=== PATIENT | female | born 1935 | race Caucasian/White ===

== ENCOUNTER 2023-06-14 10:27 | Outpatient (CLI) | payer MEDICARE, OTHER, SELFPAY ==
--- NOTE | 2023-06-14 10:45 | CRLHL7_ITS ---
For Patients: As a result of the Century Cures Act, medical imaging exams and procedure reports are released immediately into your electronic medical record. You may view this report before your referring provider. If you have questions, please contact your health care provider. DIGITAL DIAGNOSTIC BILATERAL MAMMOGRAM USING TOMOSYNTHESIS AND COMPUTER-AIDED DETECTION LEFT BREAST ULTRASOUND CLINICAL HISTORY: LEFT breast lump. COMPARISON: None. TECHNIQUE: Digital BILATERAL mammogram in four projections. Tomosynthesis and CAD utilized. Real-time ultrasound imaging of LEFT breast with imaging documentation. BREAST COMPOSITION: There are areas of scattered fibroglandular density. FINDINGS: 3D CC/MLO BILATERAL mammogram images submitted. Irregular masses present within the lateral LEFT breast and there is an additional mass within the upper LEFT breast. Normal RIGHT breast mammogram images. Targeted LEFT breast ultrasound performed. At 12 o`clock 5 cm from the nipple, there is a macronodular heterogeneously hypoechoic mass measuring 10 x 18 x 14 millimeters. An additional masses present at 2 o`clock 5 cm from the nipple measuring 3.2 x 2.0 x 1.5 cm. The two masses are located approximately 3.3 cm apart. No axillary adenopathy. IMPRESSION: Two suspicious masses within the LEFT breast including 12 o`clock 5 cm from the nipple measuring 1.8 cm and 2 o`clock 5 cm from the nipple measuring 3.2 cm. RECOMMENDATIONS: Ultrasound-guided core needle biopsy of both masses. Results and recommendations discussed with the patient and her daughter. BI-RADS Category 5: Highly Suggestive of Malignancy A lay language report of this examination will be provided to the patient. Dictated by Hank Whalen MD @ 06/14/2023 11:52:55 AM /Dictated by: Hank Whalen MD @ 06/14/2023 11:52:00 AM (Electronically Signed)
--- NOTE | 2023-06-14 11:15 | CRLHL7_ITS ---
For Patients: As a result of the Cures Act, medical imaging exams and procedure reports are released immediately into your electronic medical record. You may view this report before your referring provider. If you have questions, please contact your health care provider. PLEASE SEE DIGITAL DIAGNOSTIC BILATERAL MAMMOGRAM PERFORMED SAME DAY CRL:dominguez mix/Dictated by: Hank Whalen MD @ 06/14/2023 11:52:00 AM (Electronically Signed)
== END 2023-06-14 10:28 | disposition home or self-care (01) ==
LOC: MAMMO 10:38
PROVIDERS: PCP Family Medicine; Visit Provider Pediatrics
DX: N63.21 Unspecified lump in the left breast, upper outer quadrant (principal); R22.2 Localized swelling, mass and lump, trunk
CPT/HCPCS: 76642; 77066; G0279

== ENCOUNTER 2023-06-25 10:03 | Outpatient (CLI) | payer MEDICARE, OTHER, SELFPAY ==
--- NOTE | 2023-06-25 10:15 | CRLHL7_ITS ---
For Patients: As a result of the Century Cures Act, medical imaging exams and procedure reports are released immediately into your electronic medical record. You may view this report before your referring provider. If you have questions, please contact your health care provider. ULTRASOUND-GUIDED BREAST BIOPSY OF TWO OR MORE SITES AND POST-BIOPSY DIGITAL MAMMOGRAM FOR BIOPSY MARKER PLACEMENT CLINICAL HISTORY: Suspicious masses LEFT breast. COMPARISON STUDIES: 06/14/2023. TECHNIQUE: Real-time ultrasound with image documentation was used for targeting the breast lesions. A core needle biopsy system was used to obtain core tissue samples with an 18-gauge needle. Post-biopsy CC and ML digital mammograms were obtained to document position of the biopsy marker. CONSENT and TIME OUT: The procedure, risks, and alternatives were explained to the patient and a consent was signed. [place] Protocol was followed including pre-procedure verification that relevant information/documentation was available, reviewed and properly matched to the patient; consent accurate and complete; and equipment and supplies available. Time Out was conducted just prior to starting procedure to verify the four required elements: patient identity, correct side/site marked (if applicable), procedure, relevant images/results properly labeled and displayed (if applicable). PROCEDURE: All biopsies were performed in a similar manner. The patient was positioned supine on the ultrasound table. The breast was prepped with ChloraPrep. 8 cc 1 percent lidocaine used for local anesthesia. Core samples were obtained. A sterile metal biopsy clip was placed percutaneously to dedrick the lesion position within the breast. The specimens were placed in 10% formalin and sent to the Pathology Department. Pressure was held on the biopsy site until all bleeding subsided. The skin incision was closed with Steri-Strips. An ice pack was positioned over the biopsy site. The patient tolerated the procedure well. Post-biopsy instructions were reviewed with the patient, and a written copy was given to her. SITE A: LATERALITY: LEFT breast. LESION: Heterogeneously hypoechoic solid mass measuring 1.4 x 1.0 x 1.8 cm at 12 o`clock 5 cm from the nipple. SUSPICION: High. NUMBER OF SAMPLES: 6. BIOPSY CLIP SHAPE: Oval. PROXIMITY OF CLIP TO TARGET: Within the lesion. SITE B: LATERALITY: LEFT breast. LESION: Ill-defined hypoechoic solid mass with irregular margins measuring 1.5 x 2.0 x 3.3 cm at 2 o`clock 5 cm from the nipple. SUSPICION: High. NUMBER OF SAMPLES: 6. BIOPSY CLIP SHAPE: Oval. PROXIMITY OF CLIP TO TARGET: Within the lesion. DISTANCE BETWEEN: Sites A and B: 3.3 cm. IMPRESSION: Ultrasound-guided breast biopsy of two or more sites. When the pathology report is available, an addendum to this report will be made. ACR not applicable Dictated by Hank Whalen MD @ 06/25/2023 11:25:09 AM jj/Dictated by: Hank Whalen MD @ 06/25/2023 11:25:00 AM (Electronically Signed)
--- NOTE | 2023-06-25 11:00 | CRLHL7_ITS ---
For Patients: As a result of the Century Cures Act, medical imaging exams and procedure reports are released immediately into your electronic medical record. You may view this report before your referring provider. If you have questions, please contact your health care provider. PLEASE SEE ULTRASOUND-GUIDED LEFT BREAST BIOPSY TWO-SITES PERFORMED SAME DAY CRL:dominguez mix/Dictated by: Hank Whalen MD @ 06/25/2023 12:30:00 PM (Electronically Signed)
== END 2023-06-25 10:04 | disposition home or self-care (01) ==
LOC: US 10:04
PROVIDERS: PCP Family Medicine; Visit Provider Pediatrics
DX: N63.21 Unspecified lump in the left breast, upper outer quadrant (principal); C50.912 Malignant neoplasm of unspecified site of left female breast; R92.8 Other abnormal and inconclusive findings on diagnostic imaging of breast
CPT/HCPCS: 19083; 77065; 88305; 88342; 88360; 88361; 88377; A4648; A4649

== ENCOUNTER 2023-07-09 15:47 | Outpatient (CLI) | payer MEDICARE, OTHER, SELFPAY ==
--- OUTSIDE RECORDS SUMMARY | 2023-07-09 15:50 | XMS_ITS | Encounter Summary ---
Author Name Unknown Organization [facility] Address [address] [place] [id number] Care Team Providers Care Grinder Operator External Tool Name Role Phone Christine Trejo M.D. Primary Care Provider [phone] Reason for Visit * Reason Onset Date Comments Rib Injury 06/03/2023 Encounter Details Date Type Department Care Team (Late st Contact Info) Description 06/03/2023 Nurse Triage Department of Family Medicine, [facility], in [address] [phone] Liz Archibald, R.N. [address] [place] [phone] Rib Injury Social History Tobacco Use Types Packs/Day Years Used Date Smoking Tobacco: Former Cigarettes 0 1955 - 05/20/2000 Smokeless Tobacco: Never Alcohol Use Standard Drinks/Week Comments Yes 0 (1 standard drink = 0.6 oz pur e alcohol) occasional PHQ-2 Answer Date Recorded PHQ-2 Score 0 06/04/2023 Nutrition Answer Date Recorded Nutrition: EVOO Fat Source Unknown 07/21 Nutrition: Servings of Fruits/Vegetables per Day Not on file 07/21/2020 Dental Answer Date Recorded Dental: Regular Dentist Unknown 07/22/19 21 Sex and Gender Information Value Date Recorded Sex Assigned at Not on file Gender Identity Not on file Sexual Orientation Not on file documented as of this encounter Miscellaneous Notes * Telephone Encounter - Liz Archibald, R.N. - 06/03/2023 10:56 AM CASHIER GREETER Chief Complaint / Reason for Call Patient is a 87 y.o. female calling regarding Rib Injury. Assessment Concern: Mild-moderate intermittent pain and possible swelling on side of left breast and under left armpit. Patient fell 9 days ago onto her left side.. She still has a couple of bruises on left upper arm, but no bruising in area of concern. Since her fall she has had intermittent discomfort in her left chest wall/breast. It feels firm in the area. Hurts with certain movements/positions and whentaking a deep breath or coughing. Describes it as a heavy feeling. Is worried that the pain has gone away yet. Present for: 9 days Home cares tried: Tylenol initially. Calling to request: Appt The recommended disposition is See a health care provider within 3 days. Caller was scheduled for an acute appointment via [facility] [employer] [facility]. Reason for Disposition [1] Chest wall swelling or pain AND [2] present > 7 days Protocols used: Chest [id number] Care Advice Patient/Caregiver understands and will follow care advice?: Yes, able to teach back SEE PCP WITHIN 3 DAYS: * You need to be seen within 2 or 3 days. CALL BACK IF: * You become worse IER GREETER documented in this encounter Plan of Treatment Not on file documented as of this encounter Visit Diagnoses Not on filedocumented in this encounter Care Teams Grinder Operator External Tool Relationship Specialty Start Date End Date Christine Trejo M.D. [id number] [phone] PCP - General 04/04/22 documented as of this encounter
--- OUTSIDE RECORDS SUMMARY | 2023-07-09 15:50 | XMS_ITS ---
Author Name Unknown Organization [facility] Address [address] [place] [address] Care Team Providers Care Research Technician Name Role Phone Unavailable Unavailable Unavailable Surgery Details Not on file Complications Check Surgery Details section. Procedure Estimated Blood Loss Check Surgery Details section. Procedure Findings Check Surgery Details section. Procedure Specimens Taken Check Surgery Details section.
--- OUTSIDE RECORDS SUMMARY | 2023-07-09 15:50 | XMS_ITS | Clinical Summary ---
Author Name Unknown Organization [facility] Address [address] [place] [address] Care Team Providers Care Steward/Stewardess Name Role Phone Christine Trejo M.D. Primary Care Provider +1- [phone] Source Comments Patient records contain information from all sites at [facility]. For routine questions regarding patient records, call [phone] during business hours, M-F 8:00 AM - 5:00 PM Central Time. Record requests for emergency care only can be directed to [phone] at any time.[facility] Allergies No known active allergies Medications Medication Sig Dispensed Refills Start Date End Date Status aspirin [address] tablet Take 1 tablet by mouth daily. 0 03/21/2011 Active omega 1-bvo-lfr-fish oil 300-1,000 mg capsule Take 1 capsule by mouth daily. 0 11/28/2011 Active amLODIPine (NORVASC) 5 mg tabletIndications:Hyp ertension Essential Primary Take 1 tablet (5 mg total) by mouth daily. 90 tablet 3 04/30/2023 Active losartan-hydroCHLOROt hiazide (Hyzaar) 100-12.5 mg per tabletIndications:Hyp ertension Essential Primary Take 1 tablet by mouth daily. 90 tablet 3 04/30/2023 Active metoprolol succinate (TOPROL-XL) 100 mg 24 hr tabletIndications:Hyp ertension Essential Primary,Supraventricu lar Tachycardia, Unspecified (HCC) Take 1 tablet (100 mg total) by mouth daily. 90 tablet 3 04/30/2023 Active sertraline (Zoloft) 50 mg tabletIndications:Anx iety Take 1 tablet (50 mg total) by mouth daily. 90 tablet 3 04/30/2023 Active simvastatin (ZOCOR) 10 mg tabletIndications:Hyp erlipidemia Take 1 tablet (10 mg total) by mouth at bedtime. 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 Lump In The Left Breast Upper Outer Quadrant (Primary Dx); Abnormal Mammogram 06/14/2023 Clinical Communication Department of [facility], [facility], in [address] [phone] Christine Trejo M.D. 06/04/2023 11:30 AM STEAM TRAIN DRIVER Office Visit [facility] in [place] [address] [address] [place], [place] [address] Cande Gaitan M.D. Pain Chest Wall (Primary Dx); Mass Chest Wall; History Of Falling; Lump In The Left Breast Upper Outer Quadrant Discharge Disposition: Home or Self Care 06/04/2023 Clinical Communication Department of [facility], [facility], in [address] [place] [address] Christine Trejo M.D. Order Request 06/03/2023 Nurse Triage Department of [facility], [facility], in [address] [place] [address] Liz Archibald R.N. Rib Injury 04/30/2023 11:30 AM STEAM TRAIN DRIVER Office Visit Department of Family Medicine, [facility], in [address] [phone] Christine Trejo M.D. Hyperlipidemia (Primary Dx); Hypertension Essential Primary; Supraventricular Tachycardia, Unspecified (HCC); Anxiety; Need Vaccine Immunization; Screening Examination Diabetes Mellitus Discharge Disposition: Home or Self Care from Last 3 Months Immunizations Name Administration Dates Next Due HZV (ZOSTAVAX) 04/30/2023(Deferred: Patient dec ision) Influenza high dose QV(65 ye ars or older) (PF) 04/30/2023 Influenza, Quadrivalent, Adj uvanted, Preservative Free 04/09/2022,02/13/2021 Influenza, Unspecified 02/02/2015,02/09/2014,06/2010 PCV13 02/02/2015 PPSV23(Discontinued) 03/21/2011 RSV: respiratory syncytial v irus (ABRYSVO) bivalent vaccine 04/30/2023(Deferred: Patient decision) RSV: respiratory syncytial v irus (AREXVY) recombinant vaccine 04/30/2023 Rabies, intramuscular, historical 2012,12/11/2012,12/03/2012,2012,11/26/2012 SARS-COV-2 (COVID-19) - MODE RNA (12 YEARS AND OLDER) [id number] 04/30/2023 SARS-COV-2 (COVID-19) - PFIZ ER (Discontinued)(12 years or older) 08/01/2020,07/07/2020 SARS-COV-2 (COVID-19) - PFIZ ER BIVALENT TS(Discontinued)(12 YEARS OR OLDER) 04/09/2022 SARS-COV-2 (COVID-19) - PFIZ ER TS(Discontinued)(12 years or older) 09/13/2021 Tdap 04/30/2023(Deferred: Patient dec ision) influenza high dose (65 year s or older) (PF) 02/02/2015 influenza vaccine quad (FLUZONE/FLUARIX) (6 months and older)(PF) 02/09/2020 Family History Medical History Relation Name Comments Cataracts Brother Prostate cancer Brother Cataracts Mother Glaucoma Mother Cataracts Sister Hyperlipidemia Sister Anesthesia problems Neg Hx Macular degeneration Neg Hx Retinal degeneration Neg Hx Retinal detachment Neg Hx Relation Name Status Comments Brother Mother Sister Social History Tobacco Use Types Packs/Day Years Used Date Smoking Tobacco: Former Cigarettes 0 1955 - 05/20/2000 Smokeless Tobacco: Never Tobacco Cessation:Counseling Given: Not Answered Alcohol Use Standard Drinks/Week Comments Yes 0 (1 standard drink = 0.6 oz pur e alcohol) occasional PHQ-2 Answer Date Recorded PHQ-2 Score 0 06/04/2023 Nutrition Answer Date Recorded Nutrition: EVOO Fat Source Unknown 07/21 Nutrition: Servings of Fruits/Vegetables per Day Not on file 07/21/2020 Dental Answer Date Recorded Dental: Regular Dentist Unknown 07/22/19 Sex and Gender Information Value Date Recorded Sex Assigned at Not on file Gender Identity Not on file Sexual Orientation Not on file Last Filed Vital Signs Vital Sign Reading Time Taken Comments Blood Pressure 160/82 06/04/2023 12:06 PM STEAM TRAIN DRIVER Pulse 73 06/04/2023 12:06 PM STEAM TRAIN DRIVER Temperature 36 ??C (96.8 ??F) 04/30/2023 11: 27 AM STEAM TRAIN DRIVER Respiratory Rate 20 04/30/2023 11:2 7 AM STEAM TRAIN DRIVER Oxygen Saturation 96% 04/30/2023 11: 27 AM STEAM TRAIN DRIVER Inhaled Oxygen Concentration - - Weight 66.2 kg (145 lb 15.1 oz) 024 11:18 AM STEAM TRAIN DRIVER Height 165.1 cm (5' 5) 04/30/2023 11:2 7 AM STEAM TRAIN DRIVER Body Mass Index 24.29 04/30/2023 11:27 AM STEAM TRAIN DRIVER Plan of Treatment Health Maintenance Due Date Last Done Comments DTaP,Tdap,and Td Vaccines (1 - Tdap) 10[birth year]14/1954 Zoster Vaccines (1 of 2) 10/14/1985 Visit: Medicare Annual Wellness 05/08/2023 Creatinine Level (Kidney Fun ction Test) 04/30/2024 04/30/2023, 05/07/2022, 05/05/2021, Additional history exists Potassium Level 04/30/2024 04/30/2023, 04/19, 05/04/2020, Additional history exists Sodium Level 04/30/2024 04/30/2023, 04/19, 05/05/2021, Additional history exists Visit: Chronic Disease, age 18+ 04/30/2024 Pneumococcal vaccine (65+ years) Completed 02/03/20 15, 03/21/2011 COVID-19 Vaccine Completed 04/30/2023, , 09/13/2021, Additional history exists Influenza Vaccine Completed 04/30/2023, , 02/13/2021, Additional history exists RSV vaccine - (32-3 6 weeks) or 60+ years Completed 04/30/2023 Depression Screening (Annual PHQ-2) Completed 06/04/2023, 06/04/2023 Fall Risk Screen (Annual) Completed 06/04/2023 Medical Devices Implanted Type Area Residential Coordinator Device Identifier Shelf Expiration Date Model / Serial / Lot +[id number] Implanted:Qt y: 1 on 02/02/2019 by Praveen Chandra M.D. at [facility] Ocular Lens Right: Eye [employer] [id number] / [id number] / Lens Tcn [id number] Bicnvx +25.5d - [id number] - [id number] Implanted:Qt y: 1 on 02/16/2019 by Praveen Chandra M.D. at [facility] Ocular Lens Left: Eye [employer] (Previously JESSE) [id number] 01/30/2022 [id number] / [id number] / Procedures Procedure Name Priority Date/Time Associated Diagnosis Comments OUTSIDE US BREAST Routine 06/14/2023 11: 15 AM STEAM TRAIN DRIVER OUTSIDE MG MAMMOGRAM Routine 06/14/2023 10:55 AM STEAM TRAIN DRIVER LIPID PANEL, S Routine 04/30/2023 12:36 PM STEAM TRAIN DRIVER Hyperlipidemia GLUCOSE, FASTING, S/P Routine 04/30/2023 12:36 PM STEAM TRAIN DRIVER Screening Examination Diabetes Mellitus BASIC METABOLIC PANEL, S/P Routine 04/30/2023 12:36 PM STEAM TRAIN DRIVER Hypertension Essential Primary from Last 3 Months Results * US breast LT limited-Outside US Breast (06/14/2023 11:15 AM STEAM TRAIN DRIVER) 06/14/2023 11:1 1 AM STEAM TRAIN DRIVER Narrative IIMS - 06/14/2023 1:57 PM STEAM TRAIN DRIVER This order has been created and auto-finalized to support the import of outside images. If available, original interpretation can be found on the Media Tab in Chart Review, in Document Viewer, or as an image in QREADS. If a re-interpretation or overread is required please follow defined workflow. ?? Provider Not In System IMG BI PROCEDURES Performing Organization Address [facility] de Phone Number IIMS NA * MM diagnostic mammo BI-Outside Mammogram (06/14/2023 10:55 AM STEAM TRAIN DRIVER) 06/14/2023 10:5 4 AM STEAM TRAIN DRIVER Narrative IIMS - 06/14/2023 2:00 PM STEAM TRAIN DRIVER This order has been created and auto-finalized to support the import of outside images. If available, original interpretation can be found on the Media Tab in Chart Review, in Document Viewer, or as an image in QREADS. If a re-interpretation or overread is required please follow defined workflow. ?? Provider Not In System IMG BI PROCEDURES Performing Organization Address [facility] de Phone Number [facility]IMS NA * (ABNORMAL) Lipid Panel (04/30/2023 12:36 PM STEAM TRAIN DRIVER) Triglycerides 104 mg/dL 04/30/2023 12:56 PM STEAM TRAIN DRIVER CNFL Comment: ----REFERENCE VALUE---- Normal: <150 mg/dL Borderline High: 150-199 mg/dL High: 200-499 mg/dL Very High: > or =500 mg/dL Cholesterol, Total 165 mg/dL 2022 12:56 PM STEAM TRAIN DRIVER CNFL Comment: ----REFERENCE VALUE---- Desirable: < 200 mg/dL Borderline High: 200 - 239 mg/dL High: > or = 240 mg/dL Cholesterol, LDL, Calculated 100 mg/dL 04/30/2023 12:56 PM STEAM TRAIN DRIVER CNFL Comment: ----REFERENCE VALUE---- Desirable: <100 mg/dL Above Desirable: 100-129 mg/dL Borderline High: 130-159 mg/dL High: 160-189 mg/dL Very High: >=190 mg/dL ----ADDITIONAL INFORMATION---- LDL cholesterol calculated using the Alarcon/NIH equation. Cholesterol, HDL 46(L) >=50 mg/dL 04/30/20 12:56 PM STEAM TRAIN DRIVER CNFL Cholesterol, Non-HDL, Calculated 119 mg/dL 04/30/2023 12:56 PM STEAM TRAIN DRIVER CNFL Comment: ----REFERENCE VALUE---- Desirable: <130 mg/dL Above Desirable: 130-159 mg/dL Borderline High: 160-189 mg/dL High: 190-219 mg/dL Very High: > or =220 mg/dL Fasting (8 HR or more) Yes 04/30/2023 12:37 PM STEAM TRAIN DRIVER CNFL Blood (Blood, Venous) 04/30/2023 12:36 PM STEAM TRAIN DRIVER 04/30/2023 12:37 PM STEAM TRAIN DRIVER Christine Trejo M.D. LAB BLOOD ADD-ON [facility] [address] [place] [address], [facility] CNFL [facility] [place] [address] * Glucose, Fasting (04/30/2023 12:36 PM STEAM TRAIN DRIVER) Glucose, P 95 70 - 100 mg/dL 04/30/2023 12:54 PM STEAM TRAIN DRIVER CNFL Last Intake 20 hr 04/30/2023 12:37 PM STEAM TRAIN DRIVER CNFL Blood (Blood, Venous) 04/30/2023 12:36 PM STEAM TRAIN DRIVER 04/30/2023 12:37 PM STEAM TRAIN DRIVER Christine Trejo M.D. LAB BLOOD NON ADD- ON [facility] [address] [place] [address], [facility] CNFL [address] [address] * Basic Metabolic Panel (04/30/2023 12:36 PM STEAM TRAIN DRIVER) Potassium, P 4.2 3.6 - 5.2 mmol/L 04/30/2023 12:56 PM STEAM TRAIN DRIVER CNFL Sodium, P 138 135 - 145 mmol/L 04/30/2023 12:56 PM STEAM TRAIN DRIVER CNFL Chloride, P 100 98 - 107 mmol/L 04/30/2023 12:56 PM STEAM TRAIN DRIVER CNFL Bicarbonate, P 27 22 - 29 mmol/L 04/30/2023 12:56 PM STEAM TRAIN DRIVER CNFL Anion Gap, P 11 7 - 15 04/30/2023 12:56 PM STEAM TRAIN DRIVER CNFL BUN (Blood Urea Nitrogen), P 12 6 - 21 mg/dL 04/30/2023 12:56 PM STEAM TRAIN DRIVER CNFL Creatinine 0.81 0.59 - 1.04 mg/dL 04/30/2023 12:56 PM STEAM TRAIN DRIVER CNFL Estimated GFR (eGFR) 70 >=60 mL/min/BSA 04/30/2023 12:56 PM STEAM TRAIN DRIVER CNFL Comment: Estimated GFR calculated using the 2020 CKD_EPI creatinine equation. Calcium, Total, P 9.4 8.8 - 10.2 mg/dL 04/30/2023 12:56 PM STEAM TRAIN DRIVER CNFL Glucose, P CANCELED mg/dL 04/30/2023 12:37 PM STEAM TRAIN DRIVER CNFL Comment: Duplicate test request. Result canceled by the ancillary. Blood (Blood, Venous) 04/30/2023 12:36 PM STEAM TRAIN DRIVER 04/30/2023 12:37 PM STEAM TRAIN DRIVER Christine Trejo M.D. LAB BLOOD ADD-ON [address] [address], [place] CNFL [facility] in [address] [address] from Last 3 Months Care Teams Steward/Stewardess Relationship Specialty Start Date End Date Christine Trejo M.D. [address] [place] [phone] PCP - General 04/04/22
--- OUTSIDE RECORDS SUMMARY | 2023-07-09 15:50 | XMS_ITS | Encounter Summary ---
Author Name Unknown Organization [facility] Address [address] [place] [address] Care Team Providers Care Inspector Chief Name Role Phone Christine Trejo M.D. Primary Care Provider +1- [phone] Reason for Visit * Reason Comments Medication Review * Outpatient (Routine) - Closed Specialty Diagnoses / Procedures Referred By Lorenzo osborne Referred To Contact Family Medicine Christine Trejo M.D. [address] [place] [phone] [facility] Referral ID Status Reason Start Date Expiration Date Visits Re quested Visits Authorized [id number] Closed 02/19/2023 02/18/2026 1 1 Encounter Details Date Type Department Care Team (Latest Contact Info) Description 04/30/2023 11:30 AM SENIOR FRONT END DEVELOPER Office Visit Department of Family Medicine, [facility], in [address] [phone] Christine Trejo M.D. [address] [place] [phone] Hyperlipidemia (Primary Dx); Hypertension Essential Primary; Supraventricular Tachycardia, Unspecified (HCC); Anxiety; Need Vaccine Immunization; Screening Examination Diabetes Mellitus Discharge Disposition: Home or Self Care Social History Tobacco Use Types Packs/Day Years Used Date Smoking Tobacco: Former Cigarettes 0 1955 - 05/20/2000 Smokeless Tobacco: Never Tobacco Cessation:Counseling Given: Not Answered Alcohol Use Standard Drinks/Week Comments Yes 0 (1 standard drink = 0.6 oz pur e alcohol) occasional PHQ-2 Answer Date Recorded PHQ-2 Score 1 04/30/2023 Nutrition Answer Date Recorded Nutrition: EVOO Fat Source Unknown 07/21 Nutrition: Servings of Fruits/Vegetables per Day Not on file 07/21/2020 Dental Answer Date Recorded Dental: Regular Dentist Unknown 07/22/19 21 Sex and Gender Information Value Date Recorded Sex Assigned at Not on file Gender Identity Not on file Sexual Orientation Not on file documented as of this encounter Last Filed Vital Signs Vital Sign Reading Time Taken Comments Blood Pressure 151/66 04/30/2023 11:42 AM SENIOR FRONT END DEVELOPER Pulse 74 04/30/2023 11:27 AM SENIOR FRONT END DEVELOPER Temperature 36 ??C (96.8 ??F) 04/30/2023 11:27 AM SENIOR FRONT END DEVELOPER Respiratory Rate 20 04/30/2023 11:27 AM SENIOR FRONT END DEVELOPER Oxygen Saturation 96% 04/30/2023 11:27 AM SENIOR FRONT END DEVELOPER Inhaled Oxygen Concentration - - Weight 66.4 kg (146 lb 6.2 oz) 04/30/2023 11:27 AM SENIOR FRONT END DEVELOPER Height 165.1 cm (5' 5) 04/30/2023 11:27 AM SENIOR FRONT END DEVELOPER Body Mass Index 24.36 04/30/2023 11:27 AM SENIOR FRONT END DEVELOPER documented in this encounter Patient Instructions * Patient Instructions* Christine Trejo M.D. - 04/30/2023 11:30 AM SENIOR FRONT END DEVELOPER OR FRONT END DEVELOPER documented in this encounter Progress Notes * Christine Trejo M.D. - 04/30/2023 11:30 AM CST SUBJECTIVE REASON FOR VISIT Medication Review HISTORY OF PRESENT ILLNESS Sarah Rodriguez is a 87 y.o. female patient who presents to the clinic today for above concern. Not currently monitoring her blood pressure at home. No episodes of tachycardia while on metoprolol. OBJECTIVE VITAL SIGNS Vitals reviewed as below: BP 151/66 (BP Location: Left arm, Patient Position: Sitting, Cuff Size: Regular) Pulse 74 Temp 36 ??C Resp 20 Ht 165.1 cm Wt 66.4 kg SpO2 96% BMI 24.36 kg/m?? PHYSICAL EXAMINATION Vitals reviewed. Constitutional General: She is not in acute distress. Appearance: Normal appearance. HENT Right Ear: Tympanic membrane normal. Left Ear: Tympanic membrane normal. Mouth/Throat: Mouth: Mucous membranes are moist. Pharynx: No posterior oropharyngeal erythema. Eyes Conjunctiva/sclera: Conjunctivae normal. Neck Thyroid: No thyromegaly. Cardiovascular Rate and Rhythm: Normal rate and regular rhythm. Pulmonary Effort: Pulmonary effort is normal. Breath sounds: Normal breath sounds. No wheezing, rhonchi or rales. Abdominal General: Abdomen is flat. Bowel sounds are normal. There is no distension. Palpations: Abdomen is soft. There is no mass. Tenderness: There is no abdominal tenderness. There is no guarding. Musculoskeletal Right lower leg: No edema. Left lower leg: No edema. Lymphadenopathy Cervical: No cervical adenopathy. Skin General: Skin is warm and dry. Neurological Mental Status: She is alert. Mental status is at baseline. Psychiatric Mood and Affect: Mood normal. Behavior: Behavior normal. ASSESSMENT / PLAN #1 Hyperlipidemia Repeat lipid panel ordered today. Previously discussed de-prescribing of her simvastatin. She wishes to continue and refills are provided. #2 Hypertension Essential Primary Blood pressure is elevated in the clinic today, though suspect component of white coat hypertension. - Medications: Continue losartan-hydrochlorothiazide 100-12.5 mg daily, and amlodipine, 5 mg daily. - Patient declines nurse visit and prefers to monitor BP at home. she will notify me via phone callor portal if readings are persistently >140/90. - BMP ordered today. - If BP continues to be elevated, recommend increase in her dose of hydrochlorothiazide to 25 mg daily. Anti-Hypertensives amLODIPine (NORVASC) 5 mg tablet Take 1 tablet (5 mg total) by mouth daily. losartan-hydroCHLOROthiazide (Hyzaar) 100-12.5 mg per tablet Take 1 tablet by mouth daily. metoprolol succinate (TOPROL-XL) 100 mg 24 hr tablet Take 1 tablet (100 mg total) by mouth daily. Lab Results Component Value Date CREATININE 0.81 04/30/2023 #3 Supraventricular Tachycardia, Unspecified (HCC) Well controlled with metoprolol. Refills provided. #4 Anxiety Symptoms are adequately controlled with sertraline. Continue current dose. #5 Need Vaccine Immunization Risks and benefits of vaccination are discussed. Immunizations given today include: COVID-19 , Influenza, and RSV. #6 Screening Examination Diabetes Mellitus Fasting glucose ordered. Christine Trejo M.D. OR FRONT END DEVELOPER documented in this encounter Plan of Treatment Not on file documented as of this encounter Procedures Procedure Name Priority Date/Time Associated Diagnosis Comments LIPID PANEL, S Routine 04/30/2023 12:36 PM SENIOR FRONT END DEVELOPER Hyperlipidemia GLUCOSE, FASTING, S/P Routine 04/30/2023 12:36 PM SENIOR FRONT END DEVELOPER Screening Examination Diabetes Mellitus BASIC METABOLIC PANEL, S/P Routine 04/30/2023 12:36 PM SENIOR FRONT END DEVELOPER Hypertension Essential Primary documented in this encounter Results * Basic Metabolic Panel (04/30/2023 12:36 PM SENIOR FRONT END DEVELOPER) Potassium, P 4.2 3.6 - 5.2 mmol/L 04/30/2023 12:56 PM SENIOR FRONT END DEVELOPER CNFL Sodium, P 138 135 - 145 mmol/L 04/30/2023 12:56 PM SENIOR FRONT END DEVELOPER CNFL Chloride, P 100 98 - 107 mmol/L 04/30/2023 12:56 PM SENIOR FRONT END DEVELOPER CNFL Bicarbonate, P 27 22 - 29 mmol/L 04/30/2023 12:56 PM SENIOR FRONT END DEVELOPER CNFL Anion Gap, P 11 7 - 15 04/30/2023 12:56 PM SENIOR FRONT END DEVELOPER CNFL BUN (Blood Urea Nitrogen), P 12 6 - 21 mg/dL 04/30/2023 12:56 PM SENIOR FRONT END DEVELOPER CNFL Creatinine 0.81 0.59 - 1.04 mg/dL 04/30/2023 12:56 PM SENIOR FRONT END DEVELOPER CNFL Estimated GFR (eGFR) 70 >=60 mL/min/BSA 04/30/2023 12:56 PM SENIOR FRONT END DEVELOPER CNFL Comment: Estimated GFR calculated using the 2020 CKD_EPI creatinine equation. Calcium, Total, P 9.4 8.8 - 10.2 mg/dL 04/30/2023 12:56 PM SENIOR FRONT END DEVELOPER CNFL Glucose, P CANCELED mg/dL 04/30/2023 12:37 PM SENIOR FRONT END DEVELOPER CNFL Comment: Duplicate test request. Result canceled by the ancillary. Blood (Blood, Venous) 04/30/2023 12:36 PM SENIOR FRONT END DEVELOPER 04/30/2023 12:37 PM SENIOR FRONT END DEVELOPER Christine Trejo M.D. LAB BLOOD ADD-ON Performing Organization Address City/[facility]/ZIP Co de Phone Number [facility] [address] [place] [id number], [facility] [address] [address] * Glucose, Fasting (04/30/2023 12:36 PM SENIOR FRONT END DEVELOPER) Glucose, P 95 70 - 100 mg/dL 04/30/2023 12:54 PM SENIOR FRONT END DEVELOPER CNFL Last Intake 20 hr 04/30/2023 12:37 PM SENIOR FRONT END DEVELOPER CNFL Blood (Blood, Venous) 04/30/2023 12:36 PM SENIOR FRONT END DEVELOPER 04/30/2023 12:37 PM SENIOR FRONT END DEVELOPER Christine Trejo M.D. LAB BLOOD NON ADD- ON Performing Organization Address [facility]/ZIP Co de Phone Number [facility] [address] [place] [phone], [facility] [address] [address] * (ABNORMAL) Lipid Panel (04/30/2023 12:36 PM SENIOR FRONT END DEVELOPER) Triglycerides 104 mg/dL 04/30/2023 12:56 PM SENIOR FRONT END DEVELOPER CNFL Comment: ----REFERENCE VALUE---- Normal: <150 mg/dL Borderline High: 150-199 mg/dL High: 200-499 mg/dL Very High: > or =500 mg/dL Cholesterol, Total 165 mg/dL 2022 12:56 PM SENIOR FRONT END DEVELOPER CNFL Comment: ----REFERENCE VALUE---- Desirable: < 200 mg/dL Borderline High: 200 - 239 mg/dL High: > or = 240 mg/dL Cholesterol, LDL, Calculated 100 mg/dL 04/30/2023 12:56 PM SENIOR FRONT END DEVELOPER CNFL Comment: ----REFERENCE VALUE---- Desirable: <100 mg/dL Above Desirable: 100-129 mg/dL Borderline High: 130-159 mg/dL High: 160-189 mg/dL Very High: >=190 mg/dL ----ADDITIONAL INFORMATION---- LDL cholesterol calculated using the Alarcon/NIH equation. Cholesterol, HDL 46(L) >=50 mg/dL 04/30/20 12:56 PM SENIOR FRONT END DEVELOPER CNFL Cholesterol, Non-HDL, Calculated 119 mg/dL 04/30/2023 12:56 PM SENIOR FRONT END DEVELOPER CNFL Comment: ----REFERENCE VALUE---- Desirable: <130 mg/dL Above Desirable: 130-159 mg/dL Borderline High: 160-189 mg/dL High: 190-219 mg/dL Very High: > or =220 mg/dL Fasting (8 HR or more) Yes 04/30/2023 12:37 PM SENIOR FRONT END DEVELOPER CNFL Blood (Blood, Venous) 04/30/2023 12:36 PM SENIOR FRONT END DEVELOPER 04/30/2023 12:37 PM SENIOR FRONT END DEVELOPER Christine Trejo M.D. LAB BLOOD ADD-ON [facility] [address] [place] [phone], [facility] in [address] [address] documented in this encounter Visit Diagnoses Diagnosis Hyperlipidemia- Primary Hypertension Essential Primary Supraventricular Tachycardia, Unspecified (HCC) Anxiety Need Vaccine Immunization Screening Examination Diabetes Mellitus documented in this encounter Care Teams Inspector Chief Relationship Specialty Start Date End Date Christine Trejo M.D. [address] [place] [phone] PCP - General 04/04/22 documented as of this encounter
--- OUTSIDE RECORDS SUMMARY | 2023-07-09 15:50 | XMS_ITS | Encounter Summary ---
Author Name Unknown Organization [facility] Address [address] [place] [address] Care Team Providers Care Pulp Mill Operator Name Role Phone Christine Trejo M.D. Primary Care Provider +1- [phone] Reason for Referral * Outpatient (Routine) - Authorized Specialty Diagnoses / Procedures Referred By Lorenzo osborne Referred To Contact Christine Trejo M.D. [address] [place] [phone] [facility] Referral ID Status Reason Start Date Expiration Date V isits Requested Visits Authorized [id number] Authorized 02/19/2023 02/18/2026 1 1 Scheduling Instructions Nurse AWV Do not schedule prior to due date to ensure insurance coverage Visit: Medicare Annual Wellness due on 05/08/2023. * Outpatient (Routine) - Closed Specialty Diagnoses / Procedures Referred By Lorenzo osborne Referred To Contact Family Medicine Christine Trejo M.D. [address] [place] [phone] [facility] Region Referral ID Status Reason Start Date Expiration Date Visits Re quested Visits Authorized [id number] Closed 02/19/2023 02/18/2026 1 1 Scheduling Instructions Medicare annual provider visit/HCC gaps Do not schedule prior to due date to ensure insurance coverage Visit: Medicare Annual Wellness due on 05/08/2023. Encounter Details Date Type Department Care Team (Late st Contact Info) Description 02/19/2023 Orders Only [facility] PCP [facility] Christine Trejo M.D. [address] [phone] Monitoring For Therapeutic Drug Therapy Social History Tobacco Use Types Packs/Day Years Used Date Smoking Tobacco: Former Smokeless Tobacco: Never PHQ-2 Answer Date Recorded PHQ-2 Score 1 05/07/2022 Nutrition Answer Date Recorded Nutrition: EVOO Fat Source Unknown 07/21 Nutrition: Servings of Fruits/Vegetables per Day Not on file 07/21/2020 Dental Answer Date Recorded Dental: Regular Dentist Unknown 07/22/19 21 Sex and Gender Information Value Date Recorded Sex Assigned at Not on file Gender Identity Not on file Sexual Orientation Not on file documented as of this encounter Plan of Treatment Scheduled Referrals Name Type Priority Associated Diagnoses Orde r Schedule Family Medicine office visit (clinic) Outpatient Referral Routine Expected: 03/19/2023, Expires: 08/18/2023 Primary Care nurse visit (clinic) - [facility]; Medicare Annual Wellness Outpatient Referral Routine Expected: 03/19/2023, Expires: 08/18/2023 documented as of this encounter Visit Diagnoses Diagnosis Monitoring For Therapeutic Drug Therapy documented in this encounter Care Teams Pulp Mill Operator Relationship Specialty Start Date End Date Christine Trejo M.D. [address] [phone] PCP - General 04/04/22 documented as of this encounter
--- OUTSIDE RECORDS SUMMARY | 2023-07-09 15:50 | XMS_ITS | Referral Summary ---
Author Name Unknown Organization [facility] Address [address] [place] [address] Care Team Providers Care Maintenance Millwright Name Role Phone Christine Trejo M.D. Primary Care Provider +1- [phone] Source Comments Patient records contain information from all sites at [facility]. For routine questions regarding patient records, call [phone] during business hours, M-F 8:00 AM - 5:00 PM Central Time. Record requests for emergency care only can be directed to [phone] at any time.[facility] Encounters Date Type Department Care Team Description 06/14/2023 Orders Only Department of [facility] in [place] [address] [place] [address] Cande Gaitan M.D. Lump In The Left Breast Upper Outer Quadrant (Primary Dx); Abnormal Mammogram 06/14/2023 Clinical Communication Department of Family Medicine, [facility], in [address] [phone] Christine Trejo M.D. 06/04/2023 Clinical Communication Department of Family Medicine, [facility], in [address] [phone] Christine Trejo M.D. Order Request 06/04/2023 11:30 AM SPRAYER OPERATOR Office Visit Department of [facility] in [place], [place] [address] [place] [address] [address] Cande Gaitan M.D. Pain Chest Wall (Primary Dx); Mass Chest Wall; History Of Falling; Lump In The Left Breast Upper Outer Quadrant Discharge Disposition: Home or Self Care 06/03/2023 Nurse Triage Department of Family Medicine, [facility], in [address] [phone] Liz Archibald R.N. Rib Injury 04/30/2023 11:30 AM SPRAYER OPERATOR Office Visit Department of Family Medicine, [facility], in [address] [phone] Christine Trejo M.D. Hyperlipidemia (Primary Dx); Hypertension Essential Primary; Supraventricular Tachycardia, Unspecified (HCC); Anxiety; Need Vaccine Immunization; Screening Examination Diabetes Mellitus Discharge Disposition: Home or Self Care from Last 3 Months Allergies No known active allergies Medications Medication Sig Dispensed Refills Start Date End Date Status aspirin [address] tablet Take 1 tablet by mouth daily. 0 03/21/2011 Active omega 0-xpz-szl-fish oil 300-1,000 mg capsule Take 1 capsule [...] Overview: Added automatically from request for surgery [id number] Cataract Senile Nuclear Sclerosis Right 12/11/2018 04/30/2023 Overview: Added automatically from request for surgery [id number] Immunizations Name Administration Dates Next Due HZV [...] - MODE RNA (12 YEARS AND OLDER) [id number] 04/30/2023 SARS-COV-2 (COVID-19) - PFIZ ER (Discontinued)(12 years or older) 08/01/2020,07/07/2020 SARS-COV-2 (COVID-19) - PFIZ ER BIVALENT TS(Discontinued)(12 YEARS OR OLDER) 04/09/2022 SARS-COV-2 (COVID-19) - PFIZ ER TS(Discontinued)(12 years or older) 09/13/2021 Tdap 04/30/2023(Deferred: Patient dec ision) influenza high dose (65 year s or older) (PF) 02/02/2015 influenza vaccine quad (FLUZONE/FLUARIX) (6 months and older)(PF) 02/09/2020 Social History Tobacco Use Types Packs/Day Years [...] Comments Blood Pressure 160/82 06/04/2023 12:06 PM SPRAYER OPERATOR Pulse 73 06/04/2023 12:06 PM SPRAYER OPERATOR Temperature 36 ??C (96.8 ??F) 04/30/2023 11: 27 AM SPRAYER OPERATOR Respiratory Rate 20 04/30/2023 11:2 7 AM SPRAYER OPERATOR Oxygen Saturation 96% 04/30/2023 11: 27 AM SPRAYER OPERATOR Inhaled Oxygen Concentration - - Weight 66.2 kg (145 lb 15.1 oz) 024 11:18 AM SPRAYER OPERATOR Height 165.1 cm (5' 5) 04/30/2023 11:2 7 AM SPRAYER OPERATOR Body Mass Index 24.29 04/30/2023 11:27 AM SPRAYER OPERATOR Plan of Treatment Not on file Medical Devices Implanted Type Area Saxophone Teacher Device Identifier Shelf Expiration Date Model / Serial / Lot +22.50d Implanted:Qt y: 1 on 02/02/2019 by Praveen Chandra M.D. at [facility] Ocular Lens Right: Eye [employer] [id number] / [id number] / Lens Tcn [id number] Bicnvx +25.5d - [id number] - [id number] Implanted:Qt y: 1 on 02/16/2019 by Praveen Chandra M.D. at [facility] Ocular Lens Left: Eye [employer] (Previously JESSE) [id number] 01/30/2022 [id number] / [id number] / Procedures Procedure Name Priority Date/Time Associated Diagnosis Comments OUTSIDE US BREAST Routine 06/14/2023 11: 15 AM SPRAYER OPERATOR OUTSIDE MG MAMMOGRAM Routine 06/14/2023 10:55 AM SPRAYER OPERATOR LIPID PANEL, S Routine 04/30/2023 12:36 PM SPRAYER OPERATOR Hyperlipidemia GLUCOSE, FASTING, S/P Routine 04/30/2023 12:36 PM SPRAYER OPERATOR Screening Examination Diabetes Mellitus BASIC METABOLIC PANEL, S/P Routine 04/30/2023 12:36 PM SPRAYER OPERATOR Hypertension Essential Primary from Last 3 Months Results * US breast LT limited-Outside US Breast (06/14/2023 11:15 AM SPRAYER OPERATOR) 06/14/2023 11:1 1 AM SPRAYER OPERATOR Narrative IIMS - 06/14/2023 1:57 PM SPRAYER OPERATOR This order has been created and auto-finalized to support the import of outside images. If available, original interpretation can be found on the Media Tab in Chart Review, in Document Viewer, or as an image in QREADS. If a re-interpretation or overread is required please follow defined workflow. ?? Provider Not In System IMG BI PROCEDURES Performing Organization Address [facility] Co de Phone Number IIMS NA * MM diagnostic mammo BI-Outside Mammogram (06/14/2023 10:55 AM SPRAYER OPERATOR) 06/14/2023 10:5 4 AM SPRAYER OPERATOR Narrative IIMS - 06/14/2023 2:00 PM SPRAYER OPERATOR This order has been created and auto-finalized to support the import of outside images. If available, original interpretation can be found on the Media Tab in Chart Review, in Document Viewer, or as an image in QREADS. If a re-interpretation or overread is required please follow defined workflow. ?? Provider Not In System IMG BI PROCEDURES Performing Organization Address City/[facility]/ZIP Co de Phone Number IIMS NA * (ABNORMAL) Lipid Panel (04/30/2023 12:36 PM SPRAYER OPERATOR) Triglycerides 104 mg/dL 04/30/2023 12:56 PM SPRAYER OPERATOR CNFL Comment: ----REFERENCE VALUE---- Normal: <150 mg/dL Borderline High: 150-199 mg/dL High: 200-499 mg/dL Very High: > or =500 mg/dL Cholesterol, Total 165 mg/dL 2022 12:56 PM SPRAYER OPERATOR CNFL Comment: ----REFERENCE VALUE---- Desirable: < 200 mg/dL Borderline High: 200 - 239 mg/dL High: > or = 240 mg/dL Cholesterol, LDL, Calculated 100 mg/dL 04/30/2023 12:56 PM SPRAYER OPERATOR CNFL Comment: ----REFERENCE VALUE---- Desirable: <100 mg/dL Above Desirable: 100-129 mg/dL Borderline High: 130-159 mg/dL High: 160-189 mg/dL Very High: >=190 mg/dL ----ADDITIONAL INFORMATION---- LDL cholesterol calculated using the Alarcon/NIH equation. Cholesterol, HDL 46(L) >=50 mg/dL 04/30/20 12:56 PM SPRAYER OPERATOR CNFL Cholesterol, Non-HDL, Calculated 119 mg/dL 04/30/2023 12:56 PM SPRAYER OPERATOR CNFL Comment: ----REFERENCE VALUE---- Desirable: <130 mg/dL Above Desirable: 130-159 mg/dL Borderline High: 160-189 mg/dL High: 190-219 mg/dL Very High: > or =220 mg/dL Fasting (8 HR or more) Yes 04/30/2023 12:37 PM SPRAYER OPERATOR CNFL Blood (Blood, Venous) 04/30/2023 12:36 PM SPRAYER OPERATOR 04/30/2023 12:37 PM SPRAYER OPERATOR Christine Trejo M.D. LAB BLOOD ADD-ON [facility] [address] [place] [address], [facility] in [address] [address] * Glucose, Fasting (04/30/2023 12:36 PM SPRAYER OPERATOR) Glucose, P 95 70 - 100 mg/dL 04/30/2023 12:54 PM SPRAYER OPERATOR CNFL Last Intake 20 hr 04/30/2023 12:37 PM SPRAYER OPERATOR CNFL Blood (Blood, Venous) 04/30/2023 12:36 PM SPRAYER OPERATOR 04/30/2023 12:37 PM SPRAYER OPERATOR Christine Trejo M.D. LAB BLOOD NON ADD- ON [facility] [address] [place] [id number], [facility] CNFL [facility] [place] [address] * Basic Metabolic Panel (04/30/2023 12:36 PM SPRAYER OPERATOR) Potassium, P 4.2 3.6 - 5.2 mmol/L 04/30/2023 12:56 PM SPRAYER OPERATOR CNFL Sodium, P 138 135 - 145 mmol/L 04/30/2023 12:56 PM SPRAYER OPERATOR CNFL Chloride, P 100 98 - 107 mmol/L 04/30/2023 12:56 PM SPRAYER OPERATOR CNFL Bicarbonate, P 27 22 - 29 mmol/L 04/30/2023 12:56 PM SPRAYER OPERATOR CNFL Anion Gap, P 11 7 - 15 04/30/2023 12:56 PM SPRAYER OPERATOR CNFL BUN (Blood Urea Nitrogen), P 12 6 - 21 mg/dL 04/30/2023 12:56 PM SPRAYER OPERATOR CNFL Creatinine 0.81 0.59 - 1.04 mg/dL 04/30/2023 12:56 PM SPRAYER OPERATOR CNFL Estimated GFR (eGFR) 70 >=60 mL/min/BSA 04/30/2023 12:56 PM SPRAYER OPERATOR CNFL Comment: Estimated GFR calculated using the 2020 CKD_EPI creatinine equation. Calcium, Total, P 9.4 8.8 - 10.2 mg/dL 04/30/2023 12:56 PM SPRAYER OPERATOR CNFL Glucose, P CANCELED mg/dL 04/30/2023 12:37 PM SPRAYER OPERATOR CNFL Comment: Duplicate test request. Result canceled by the ancillary. Blood (Blood, Venous) 04/30/2023 12:36 PM SPRAYER OPERATOR 04/30/2023 12:37 PM SPRAYER OPERATOR Christine Trejo M.D. LAB BLOOD ADD-ON [facility] [address] [place] [address], [place] CNFL [facility] in [address] [phone] from Last 3 Months Care Teams Maintenance Millwright Relationship Specialty Start Date End Date Christine Trejo M.D. [address] [place] [address] [place] [phone] PCP - General 04/04/22
--- OUTSIDE RECORDS SUMMARY | 2023-07-09 15:50 | XMS_ITS | Encounter Summary ---
Author Name Unknown Organization [facility] Address [address] [place] [address] Care Team Providers Care Medical Center Director Name Role Phone Christine Trejo M.D. Primary Care Provider +1- [phone] Encounter Details Date Type Department Care Team (Late st Contact Info) Description 06/14/2023 Clinical Communication Department of Family Medicine, [facility], in [address] [phone] Christine Trejo M.D. [address] [place] [phone] Social History Tobacco Use Types Packs/Day Years [...] encounter Miscellaneous Notes * Telephone Encounter - Cande Guadalupe M.S., R.N. - 06/17/2023 8:16 AM OPERATIONS ASSOCIATE Referral faxed to [facility]. ATIONS ASSOCIATE * Telephone Encounter - Julia Sutton - 06/14/2023 4:49 PM CST Records have been received and entered into Doc Viewer ATIONS ASSOCIATE * Telephone Encounter - [place] Pereira - 06/14/2023 3:11 PM CST We have not receieved any records. Thanks ATIONS ASSOCIATE documented in this encounter Plan of Treatment Not on file documented as of this encounter Visit Diagnoses Not on filedocumented in this encounter Care Teams Medical Center Director Relationship Specialty Start Date End Date Christine Trejo M.D. [address] [place] [phone] PCP - General 04/04/22 documented as of this encounter
--- OUTSIDE RECORDS SUMMARY | 2023-07-09 15:50 | XMS_ITS | Encounter Summary ---
Author Name Unknown Organization [facility] Address [address] [place] [address] Care Team Providers Care Last Waxer Name Role Phone Christine Trejo M.D. Primary Care Provider +1- [phone] Reason for Referral * Outpatient (Routine) - Authorized Specialty Diagnoses / Procedures Referred By Lorenzo osborne Referred To Contact Radiology Diagnoses Lump In The Left Breast Upper Outer Quadrant Mass Chest Wall Cande Gaitan M.D. [address] [place] [phone] Referral ID Status Reason Start Date Expiration Date Visits Requested Visits Authorized [id number] Authorized Patient Preference 06/04/2023 06/03/2024 1 1 N DRILLER HELPER Reason for Visit * Reason Onset Date Comments Order Request 06/04/2023 Encounter Details Date Type Department Care Team ([facility] st Contact Info) Description 06/04/2023 Clinical Communication Department of Family Medicine, [facility], in [address] [phone] Christine Trejo M.D. [address] [place] [phone] Order Request Social History Tobacco Use Types Packs/Day Years [...] Encounter - Cande Guadalupe M.S., R.N. - 06/06/2023 8:25 AM CHURN DRILLER HELPER Orders re-faxed. There are not previous images available, but faxed office note from Dr. Gaitan 06/04/23. N DRILLER HELPER documented in this encounter Plan of Treatment Not on file documented as of this encounter Visit Diagnoses Diagnosis Lump In The Left Breast Upper Outer Quadrant- Primary Mass Chest Wall documented in this encounter Care Teams Last Waxer Relationship Specialty Start Date End Date Christine Trejo M.D. [address] [place] [phone] PCP - General 04/04/22 documented as of this encounter
--- OUTSIDE RECORDS SUMMARY | 2023-07-09 15:50 | XMS_ITS | Encounter Summary ---
Author Name Unknown Organization [facility] Address [address] [place] [address] Care Team Providers Care Auditing Clerk Name Role Phone Christine Trejo M.D. Primary Care Provider +1- [phone] Reason for Referral * Outpatient (Routine) - Authorized Specialty Diagnoses / Procedures Referred By Lorenzo osborne Referred To Contact Diagnoses Lump In The Left Breast Upper Outer Quadrant Abnormal Mammogram Cande Gaitan M.D. [address] [place] [phone] Referral ID Status Reason Start Date Expiration Date Visits Requested Visits Authorized [id number] Authorized Continuity of Care 06/14/2023 12/13/2024 1 1 ASE SPECIALIST Encounter Details Date Type Department Care Team (Late st Contact Info) Description 06/14/2023 Orders Only Department of [facility] in [address] [place] [phone] Cande Gaitan M.D. [address] [place] [phone] Lump In The Left Breast Upper Outer Quadrant (Primary Dx); Abnormal Mammogram Social History Tobacco Use Types Packs/Day Years [...] as of this encounter Plan of Treatment Not on file documented as of this encounter Visit Diagnoses Diagnosis Lump In The Left Breast Upper Outer Quadrant- Primary Abnormal Mammogram documented in this encounter Care Teams Auditing Clerk Relationship Specialty Start Date End Date Christine Trejo M.D. [address] [place] [phone] PCP - General 04/04/22 documented as of this encounter
--- OUTSIDE RECORDS SUMMARY | 2023-07-09 15:50 | XMS_ITS | Encounter Summary ---
Author Name Unknown Organization [facility] Address [address] [place] [id number] Care Team Providers Care Outside Installation Machinist Name Role Phone Christine Trejo M.D. Primary Care Provider [phone] Reason for Referral * Outpatient (Routine) - Authorized Specialty Diagnoses / Procedures Referred By Lorenzo t Referred To Contact Family Medicine Cande Gaitan M.D. [address] [place] [address] [facility] Referral ID Status Reason Start Date Expiration Date V isits Requested Visits Authorized [id number] Authorized 06/04/2023 06/03/2026 1 1 Scheduling Instructions F/u breast imaging and elevated blood pressure C PROGRAMMER Reason for Visit * Reason Comments Fall Encounter Details Date Type Department Care Team (Late st Contact Info) Description 06/04/2023 11:30 AM C PROGRAMMER Office Visit Department of [facility] in [address] [place] [address] Cande Gaitan M.D. [address] [place] [address] Pain Chest Wall (Primary Dx); Mass Chest Wall; History Of Falling; Lump In The Left Breast Upper Outer Quadrant Discharge Disposition: Home or Self Care Social [...] Comments Blood Pressure 160/82 06/04/2023 12:06 PM C PROGRAMMER Pulse 73 06/04/2023 12:06 PM C PROGRAMMER Temperature - - Respiratory Rate - - Oxygen Saturation - - Inhaled Oxygen Concentration - - Weight 66.2 kg (145 lb 15.1 oz) 024 11:18 AM C PROGRAMMER Height - - Body Mass Index 24.29 04/30/2023 11:27 AM C PROGRAMMER documented in this encounter Patient Instructions * Patient Instructions* Cande Gaitan M.D. - 06/04/2023 11:30 AM C PROGRAMMER Can try flonase spray and/or Non-drowsy antihistamines: Claritin (loratadine) Eden (fexofenadine) Zyrtec (cetirizine) All are available without a prescription. I recommend avoiding the decongestant version because of high blood pressure. Check blood pressure 1-3 days a week. If consistently above 140/90, should contact Dr. Trejo to discuss next steps. C PROGRAMMER documented in this encounter Progress Notes * Cande Gaitan M.D. - 06/04/2023 11:30 AM CST SUBJECTIVE CHIEF COMPLAINT / REASON FOR VISIT Sarah Rodriguez is a 87 y.o. female who presents for evaluation of Fall. HISTORY OF PRESENT ILLNESS Here for left chest pain after a fall about 10 days ago. She is accompanied by her son's girlfriendHeather Pablo ([phone]). She fell outside onto the ice 05/25 and did not think she hurt herself significantly until the next day she noted bruising on her left upper arm. She has noted more left breast tenderness and possible lump. She does feel some pain when she uses L arm or coughs or takes a deep breath. She does not have any shortness of breath and has no pain at rest. She tried tylenol which helped some. The following portions of the patient's history were reviewed and updated as appropriate: allergies, current medications, family history, medical history, social history, surgical history, and problem list. Social History Tobacco Use Smoking status: Former Types: Cigarettes Start date: 1955 Quit date: 05/20/2000 Years since quittin.0 Smokeless tobacco: Never Vaping Use Vaping Use: never used Substance Use Topics Alcohol use: Yes Comment: occasional Drug use: Never No Known Allergies Current Outpatient Medications Medication Sig amLODIPine (NORVASC) 5 mg tablet Take 1 tablet (5 mg total) by mouth daily. aspirin [address] tablet Take 1 tablet by mouth daily. losartan-hydroCHLOROthiazide (Hyzaar) 100-12.5 mg per tablet Take 1 tablet by mouth daily. metoprolol succinate (TOPROL-XL) 100 mg 24 hr tablet Take 1 tablet (100 mg total) by mouth daily. omega 0-tuo-wff-fish oil 300-1,000 mg capsule Take 1 capsule by mouth daily. sertraline (Zoloft) 50 mg tablet Take 1 tablet (50 mg total) by mouth daily. simvastatin (ZOCOR) 10 mg tablet Take 1 tablet (10 mg total) by mouth at bedtime. OBJECTIVE PHYSICAL EXAMINATION BP (!) 182/79 Pulse 77 Wt 66.2 kg BMI 24.29 kg/m?? Body mass index is 24.29 kg/m??. BP 160/82 General: Alert and in no acute distress Neck: Supple without cervical or supraclavicular lymphadenopathy Respiratory: Effort is easy, lung sounds are clear to auscultation with no wheezes or crackles Cardiovascular: S1 & S2 are present, normal rate and rhythm, no murmur, no edema Musculoskeletal: Grossly intact, no deformities are noted Skin: Normal color, temperature and moisture, no rashes or lesions are noted, left lateral upper arm ecchymosis (faded/yellowed) Breast: Left upper out quadrant with large irregular mobile, mildly tender mass from 11 oc lock to 3 clock and mild inferior left lateral breast tenderness with overlying ecchymosis, No axillary lymphadenopathy, no suspicious skin changes, nipples everted bilaterally with no discharge. DIAGNOSTICS Results for orders placed or performed in visit on 04/30/23 Basic Metabolic Panel Result Value Ref Range Potassium, P 4.2 3.6 - 5.2 mmol/L Sodium, P 138 135 - 145 mmol/L Chloride, P 100 98 - 107 mmol/L Bicarbonate, P 27 22 - 29 mmol/L Anion Gap, P 11 7 - 15 BUN (Blood Urea Nitrogen), P 12 6 - 21 mg/dL Creatinine 0.81 0.59 - 1.04 mg/dL Estimated GFR (eGFR) 70 >=60 mL/min/BSA Calcium, Total, P 9.4 8.8 - 10.2 mg/dL Glucose, P CANCELED mg/dL Glucose, Fasting Result Value Ref Range Glucose, P 95 70 - 100 mg/dL Last Intake 20 hr Lipid Panel Result Value Ref Range Triglycerides 104 mg/dL Cholesterol, Total 165 mg/dL Cholesterol, LDL, Calculated 100 mg/dL Cholesterol, HDL 46 (L) >=50 mg/dL Cholesterol, Non-HDL, Calculated 119 mg/dL Fasting (8 HR or more) Yes ASSESSMENT / PLAN #1 Pain Chest Wall #2 Mass Chest Wall #3 History Of Falling #4 Lump In The Left Breast Upper Outer Quadrant Suspicious for malignancy vs hematoma but without overlying skin changes. Diagnostic breast imagingordered and re-ordered for [place] for sooner access. Please call Aide Shah ([phone]) to schedule.Patient is understandably apprehensive about this. We discussed possible follow up in [place] breast clinic. May use warm or cool pack on it in the meantime. Elevated blood pressure: Advised follow home blood pressures. If consistently above 140/90 should follow up with primary care provider. Other orders - BI Ultrasound Breast Focused Left; Future; Expected date: 06/04/2023 - BI Breast Diagnostic Left with Tomosynthesis; Future; Expected date: 06/04/2023 Medications, proper use, and common and severe side effects were reviewed with the patient/caregiver. If new or concerning symptoms develop, patient/caregiver understands to seek medical attention. Patient/caregiver verbalizes understanding and acceptance of this plan of care and denies any further needs at this time. Return to clinic as needed. I spent 45 minutes on the date of this visit in record review, coordination of care and face to face or virtual patient care regarding the above chronic conditions. Cande Gaitan M.D. C PROGRAMMER documented in this encounter Plan of Treatment Scheduled Referrals Name Type Priority Associated Diagnoses Orde r Schedule Family Medicine office visit (clinic) Outpatient Referral Routine Expected: 06/25/2023 (Approximate), Expires: 09/02/2024 documented as of this encounter Visit Diagnoses Diagnosis Pain Chest Wall- Primary Mass Chest Wall History Of Falling Lump In The Left Breast Upper Outer Quadrant documented in this encounter Care Teams Outside Installation Machinist Relationship Specialty Start Date End Date Christine Trejo M.D. [address] [place] [phone] PCP - General 04/04/22 documented as of this encounter
== END 2023-07-09 15:48 | disposition home or self-care (01) ==
PROVIDERS: PCP Family Medicine; Visit Provider Internal Medicine
DX: Z01.818 Encounter for other preprocedural examination (principal); C50.912 Malignant neoplasm of unspecified site of left female breast
CPT/HCPCS: 80048; 85610

== ENCOUNTER 2023-07-18 09:40 | Day surgery (SDC) | payer MEDICARE, OTHER, SELFPAY ==
[2023-07-18] VITALS (20 sets, daily range): BP systolic 96–163; BP diastolic 49–77; PULSE 69–87; RESP 12–16; TEMP 35.4–36.8; O2SAT 91–97; BMI 24.7
--- NOTE | 2023-07-18 11:00 | NM_ITS ---
Patient: ANATOLIY MONTANO Facility:?[facility] Patient ID:?[id number] Site Patient ID:?[id number]. Site :?[id number] Study:?NM-Breast Procedure Lymphangioscintigraphy-07/18/2023 12:10:51 PM Ordering Physician:?PATRICK BARRETT Final Report: SENTINEL LYMPH NODE LOCALIZATION INJECTION left breast CLINICAL HISTORY: Left breast cancer LATERALITY: Left breast TECHNIQUE: With the patient supine, the periareolar left breast was cleansed with alcohol. 0.71 millicuries of technetium Tc 99m filtered sulfur colloid in a volume of 1 cc was injected intradermal in the upper outer periareolar breast with a 25- gauge needle. The patient tolerated the procedure well and there were no immediate complications. IMPRESSION: Injection for sentinel lymph node of the left breast. Dictated by Hank Whalen MD @ 07/19/2023 9:24:44 AM Signed by:?Hank Whalen MD @07/19/2023 9:24:44 AM (Electronic Signature)
[2023-07-18] MEDS: LACTATED RINGERS 1000 ML 1,000 ML 100 ML IV (11:46)
[2023-07-18] MEDS: SODIUM CHLORIDE 0.9 % (FLUSH) 10 ML SYRINGE IVF (11:46)
--- NOTE | 2023-07-18 12:01 | PM.GSPRC ---
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 Bilateral mastectomy 2. Left axillary sentinel node biopsy Indications: The patient is an 87-year-old female who was found to have 2 masses in the left breast, 1 at 12 o'clock and 1 at 2 o'clock. 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 Both were ER [place] positive, HER2 negative. Procedure Description: After discussion of risks and benefits, the patient was brought to the operating room and placed supine on the operating table. General anesthesia was induced. 1 hr to incision, radiotracer was injected into the dermis the left breast just above the areola. 10 min prior to the incision I injected 3 ml isosulfan blue dye into the dermis above the areola. This was massaged for 3 min. Once this was completed, the area was prepped and draped sterilely. A time-out was then completed. We began on the left side. An elliptical incision was created in an oblique fashion with the lateral apex the incision overlying the palpable tumor. Subcutaneous flaps were created using cautery. Care was taken to stay in the a vascular plane between the breast tissue in the subcutaneous tissue. Bleeding vessels were cauterized. Dissection was taken superiorly to the clavicle, medially to the sternum, inferiorly to the inframammary fold, and laterally to the latissimus. Once the flaps were created, the breast was taken off of the chest wall, taking the pectoralis fascia. As I approached and dissected free the area of the most lateral tumor, it appeared to be very close to the chest wall and therefore I elected to removed a margin of pectoralis as well as chest wall fat overlying the ribs lateral to this. This was attached laterally and the flap was tacked down in its anatomic location deep to the tumor using suture. Clips were placed at this location. An additional clip was placed at the site on the skin where the tumor was very close anteriorly. Small bleeding vessels were cauterized. The breast was marked with a stitch at the superior aspect sent for margins. These returned appearing to be grossly widely negative. Attention was then turned to the sentinel lymph node biopsy. The probe was brought into the field. A strong signal was noted and dissection was taken down through the clavipectoral fascia into the axillary fat. The probe was used to identify a node and this was carefully dissected free of the surrounding fat using cautery. The signal was measured ex vivo. It had a signal of approximately 300. The probe was placed back into the wound bed and there was no further signal noted. There were no blue lymphatic channels noted. There was 1 node nearby which was palpable. This was excised and sent together to pathology as the left axillary sentinel lymph nodes. Once this was done, and assuring hemostasis, a 15 Wallisian Kurt drain was placed through the skin below the incision laterally and placed in the chest cavity. José was placed in the wound bed. The wound was then closed with 3-0 Vicryl dermal and 4-0 Monocryl running subcuticular suture. A drain stitch was placed. Gloves and instruments were then changed and attention was then turned to the prophylactic mastectomy on the right. An identical incision was made and dissection was taken down into the subcutaneous tissue creating skin flaps superiorly to the clavicle, medially to the sternum, inferiorly to the inframammary fold and laterally to the latissimus. The breast tissue was then removed from the pectoralis muscle, taking the pectoralis fascia. Hemostasis was achieved with cautery. A stitch was placed superiorly to orient the specimen and it was sent to pathology. Similarly a 15 Wallisian channel drain was placed in the right lateral skin and placed within the wound cavity. José was placed in the wound bed. The wound was then closed with 3-0 Vicryl dermal 4-0 Monocryl running subcuticular suture. The drain was secured in place. Sterile dressings were applied. Instrument sponge and needle counts were correct. The patient was then woken and transported to the recovery area in stable condition. The patient tolerated the procedure well. Findings: 1. Left breast specimen with grossly negative margins very 2 tumors noted 2. One axillary sentinel node with an additional node sent. Anesthesia: GETA Surgeon: Carmita Naranjo MD Estimated blood loss (mL): 50 Additional Specimen Information: 1. Left breast, stitch superior 2. Left axillary sentinel nodes 3. Right breast, stitch superior Condition: stable Disposition: PACU [place] Node Biopsy for Breast Cancer Operation Performed with Curative Intent: Yes Tracers used to Identify sentinel nodes in the upfront surgery (non-neoadjuvant) setting: Dye Tracers used to identify sentinel nodes in the neoadjuvant setting: N/A All nodes (colored or non-colored) present at the end of a dye filled lymphatic channel were removed: Yes All significantly radioactive nodes were removed: Yes All palpably suspicious nodes were removed: Yes Biopsy proven positive nodes marked with clips prior to chemotherapy were identified and removed: Not Applicable
[2023-07-18] MEDS: ISOSULFAN BLUE 5 ML VIAL INJECTION (12:48)
[2023-07-18] MEDS: CEFAZOLIN 2 GM INJ IVP (12:55)
--- NOTE | 2023-07-18 15:14 | W.ANESCHARGE ---
Anesthesia Charges Start Date/Time Anesthesia Start Date: 07/18/23 Anesthesia Start Time: 12:34 Stop Date/Time Anesthesia Stop Date: 07/18/23 Anesthesia Stop Time: 15:26 Summary Extremes of Age - Over 70 or under 1: MDA
--- NOTE | 2023-07-18 15:23 | P.NB_ITS ---
Nerve Block Nerve Block Time Seen by Provider: 12:44 Date Seen: 07/18/23 Type of block requested by surgeon for post-operative analgesia: intercostal and intercostal add on Side: bilateral Time out performed: Yes Verification of patient name: Yes Verification of date of : Yes Site marking: site marked Name of person performing procedure: Moshe Continuous monitoring Was continuous monitoring of O2 sat, B/P, front desk monitor, recorded every 15 minutes?: Yes Procedure Checklist: sterile prep, needles and gloves Ultrasound guided. Images saved: Yes Medications given in 5ml increments after negative aspiration: Marcaine %: 0.25 mL: 30 and Exparel mL: 16 Needle gauge: 20 Patient tolerated procedure well: Yes Block Charges Block Charge (with Pro Fee): Intercostal Nerve Block Use of Ultrasound Machine for Block: Yes- US Guidance/pain block
--- NOTE | 2023-07-18 15:28 | W.ANESCHARGE ---
Anesthesia Charges Start Date/Time Anesthesia Start Date: 07/18/23 Anesthesia Start Time: 12:34 Stop Date/Time Anesthesia Stop Date: 07/18/23 Anesthesia Stop Time: 15:26
--- NOTE | 2023-07-18 16:04 | SUR.PHASEI ---
patient met discharge criteria per anesthesia
[2023-07-18] MEDS: ONDANSETRON 2 MG/ML inj IVP (16:39)
[2023-07-18] MEDS: LACTATED RINGERS 1000 ML 1,000 ML 125 ML IV (18:02)
--- NOTE | 2023-07-18 20:11 | PC.NURSE ---
Nursing Care Hours: [id number] Pt this shift arrived from PACU on stretcher alert and oriented. Emesis right away but denies nausea. VSS on admission. RAINA drains patent but low volume, serosanguineous in color. Emesis about 30min after arrival and zofran given, no issue since. Declined a full dinner but did eat crackers and some coffee. Incontinent underwear changed x1 with 2 assist. Pt slightly unsteady on feet and feeling dizzy. IS education given, getting about [id number].
[2023-07-18] MEDS: SIMVASTATIN 10 MG TABLET PO (20:15)
[2023-07-19] MEDS: LACTATED RINGERS 1000 ML 1,000 ML 125 ML IV (02:12)
[2023-07-19 02:16] VITALS: BP 114/68; PULSE 80; RESP 16; TEMP 36.5; O2SAT 93
--- NOTE | 2023-07-19 06:48 | PC.NURSE ---
: pleasant and cooperative. No c/o pain. Chest wrapped with RADHA. VSS. Bilat JPs patent, draining serosanguinous fluid. Pt stated that her DIL will be her caregiver when she goes home, pt plans?to have her present during d/c teaching.
[2023-07-19 07:45] VITALS: BP 128/67; PULSE 75; RESP 18; TEMP 36.7; O2SAT 93
[2023-07-19] MEDS: hydroCHLOROthiazide 12.5 MG CAPSULE PO (08:45)
[2023-07-19] MEDS: METOPROLOL SUCCINATE (XL) 100 MG TAB PO (08:45)
[2023-07-19] MEDS: LOSARTAN POTASSIUM 50 MG TABLET 100 MG PO (08:45)
[2023-07-19] MEDS: ASPIRIN 81 MG TABLET EC PO (08:46)
[2023-07-19] MEDS: AMLODIPINE 5 MG TABLET PO (08:46)
--- NOTE | 2023-07-19 10:22 | PM.DS1 ---
DS: Providers Provider Date Seen: 07/19/23 Date of admission: 07/18/23 Primary care physician: Christine Trejo MD Admitting Clinician: Carmita Naranjo M.D. Attending Physician on discharge: Carmita Naranjo MD Date of Discharge: 07/19/23 DS: Diagnosis Discharge Diagnosis (1) Breast cancer, left breast: Status: Acute Problem details: multi focal invasive lobular carcinoma, ER HI positive, HER2 negative (2) S/P bilateral mastectomy: Status: Acute DS: Summary Hospital Course Hospital Course: The patient was admitted after undergoing bilateral mastectomy and left axillary sentinel node biopsy for invasive lobular carcinoma of left breast. She was admitted overnight. She did well postoperatively. She was deemed safe for discharge home on postop day 1. Time Spent with Patient Time attestation: Total time spent providing and/or coordinating discharge services: Exam Narrative: Exam Narrative: General: No acute distress CV: Regular rate and rhythm Respiratory: Breathing nonlabored on room air Chest: Incisions are clean and dry without erythema. Flaps appear healthy and well perfused. No fluid collections. Bilateral chest wall drainage is 90 on the left and 50 on the right. This is becoming more serous. Const: Vital Signs, click to edit/add: Vital Signs - 24 hr 07/18/23 11:05 07/18/23 15:23 07/18/23 15:25 Temperature 98.1 F 98.2 F 98.2 F Pulse Rate 87 75 75 Pulse Rate [Left P ulse Oximeter] Respiratory Rate 16 14 15 Blood Pressure 163/77 H 129/56 L 120/61 Blood Pressure [Ri ght Arm] Pulse Oximetry 94 96 96 Oxygen Delivery Me thod Room Air Nasal Cannula Nasal Cannula Oxygen Flow Rate 2 2 07/18/23 15:30 07/18/23 15:35 07/18/23 15:40 Temperature 98.2 F 98.2 F 98.2 F Pulse Rate 76 75 75 Pulse Rate [Left P ulse Oximeter] Respiratory Rate 15 13 13 Blood Pressure 117/54 L 118/69 126/58 L Blood Pressure [Ri ght Arm] Pulse Oximetry 96 97 97 Oxygen Delivery Me thod Nasal Cannula Nasal Cannula Nasal Cannula Oxygen Flow Rate 2 2 2 07/18/23 15:45 07/18/23 15:50 07/18/23 16:00 Temperature 98.2 F 97.6 F 96.1 F L Pulse Rate 73 71 81 Pulse Rate [Left P ulse Oximeter] Respiratory Rate 12 14 16 Blood Pressure 124/55 L 119/59 L Blood Pressure [Ri ght Arm] 129/57 L Pulse Oximetry 92 92 92 Oxygen Delivery Me thod Room Air Room Air Room Air Oxygen Flow Rate 07/18/23 16:15 07/18/23 16:30 07/18/23 16:45 Temperature Pulse Rate Pulse Rate [Left P ulse Oximeter] Respiratory Rate Blood Pressure Blood Pressure [Ri ght Arm] 127/57 L 133/62 114/77 Pulse Oximetry 93 93 Oxygen Delivery Me thod Room Air Oxygen Flow Rate 07/18/23 17:00 07/18/23 17:30 07/18/23 18:04 Temperature 95.8 F L Pulse Rate Pulse Rate [Left P ulse Oximeter] 69 75 Respiratory Rate 16 16 16 Blood Pressure Blood Pressure [Ri ght Arm] 106/68 119/55 L 110/53 L Pulse Oximetry 93 96 93 Oxygen Delivery Me thod Room Air Room Air Room Air Oxygen Flow Rate 07/18/23 19:00 07/18/23 20:00 07/18/23 21:00 Temperature Pulse Rate Pulse Rate [Left P ulse Oximeter] 78 75 78 Respiratory Rate 16 16 16 Blood Pressure Blood Pressure [Ri ght Arm] 98/54 L 96/49 L 105/66 Pulse Oximetry 94 91 91 Oxygen Delivery Me thod Room Air Room Air Room Air Oxygen Flow Rate 07/18/23 22:00 07/18/23 23:00 07/19/23 02:16 Temperature 97.7 F Pulse Rate Pulse Rate [Left P ulse Oximeter] 76 80 Respiratory Rate 16 16 Blood Pressure Blood Pressure [Ri ght Arm] 114/68 114/68 Pulse Oximetry 94 94 93 Oxygen Delivery Me thod Room Air Room Air Oxygen Flow Rate Discharge Plan Discharge Disposition: Home, Self-Care Discharging Surgeon: Carmita Naranjo Follow-Up Appointment: Follow up planned 07/31/[address] Gutierrez at 1:30 at [facility] Prescriptions: Continued simvastatin 10 mg tablet 10 mg PO HS aspirin 81 mg tablet,delayed release (DR/EC) 81 mg PO DAILY amlodipine 5 mg tablet 5 mg PO DAILY metoprolol succinate 100 mg tablet extended release 24 hr 100 mg PO DAILY sertraline 50 mg tablet 50 mg PO DAILY losartan-hydrochlorothiazide 100-12.5 mg tablet 1 tab PO DAILY Activity Level: Activity as Tolerated Activity Detail: No lifting more than 20 pounds for 4 weeks Discharge Diet: Regular Patient Instructions: Deep Sedation (DC), Post-Operative Instructions: Breast Surgery Additional Instructions: Wound care: Your sutures are under the skin and will dissolve over time. Leave steri strips (white bandages) over incisions until they fall off (or remove after 7 days). Wear taniya wrap or compressive bra until drains are removed. OK to shower tomorrow but avoid bathing, soaking or swimming for 2 weeks. Pat the incisions dry. No need to wash or scrub the area. Cover drain sites with Tegaderm (from nurse) or saran wrap and tape. Press and seal also works well. Apply ice to the area as needed for swelling. It is also OK to use a heating pad if this provides more comfort to you. Empty and record drain output daily. Keep track of this and bring to your appointment. If output has been less than 30 ml for two consecutive days, you may call [facility] to see if you can get in sooner than 07/30 for drain removal. Pain control: Use tylenol as needed for pain. Take an [id number] stool softener while you are taking prescribed pain medications to help alleviate constipation. I recommend Senna and/or Colace. Take as directed on package. If you have not had a bowel movement in 3 days, try taking Miralax as directed on the package. All of these are available over the counter. Follow-up Follow up with Dr. Gutierrez in 2 weeks as scheduled Please call if you are experiencing severe pain, nausea, vomiting, difficulty urinating, fever or have not had bowel movement in 4 days after surgery. Forms: Work/School Release Follow-up: Matt/Jose A [Provider Group] Carmita Naranjo MD [Staff Physician] - Christine Trejo MD [Primary Care Provider] - Discharge Orders: Discharge Order (Routine); Ordered 07/19/23 Ordered By: Carmita Naranjo
--- NOTE | 2023-07-19 11:42 | PC.NURSE ---
Pt up independently. Denies pain. Dressing and RAINA instructions given verbally, written and with demonstration to pt and DIL/caregiver, Aide. IV DC'd, cath tip intact. DC instructions given verbally and written, all questions answered. Follow up appointment previously schedule on pt calendar. DC to home with Aide @[phone].
== END 2023-07-19 11:35 | disposition home or self-care (01) ==
LOC: OR 09:41 → MEDSURG 09:41
PROVIDERS: PCP Family Medicine; Visit Provider Surgery
PROC: (CPT 19303; principal; 2023-07-18 12:45)
PROC: (CPT 19303; 2023-07-18 12:45)
DX: C50.412 Malignant neoplasm of upper-outer quadrant of left female breast (principal); C50.812 Malignant neoplasm of overlapping sites of left female breast; G89.18 Other acute postprocedural pain; Z17.0 Estrogen receptor positive status [ER+]
CPT/HCPCS: 19303; 38525; 01610; 38792; 64420; 64421; 76942; 88307; 99100; A9270; A9541; C9290; J0330; J0665; J0690; J1100; J1630; J2371; J2405; J2704; J3010; J3475; J3490; J7120

== ENCOUNTER 2023-08-22 14:54 | Outpatient (CLI) | payer MEDICARE, OTHER, SELFPAY ==
--- NOTE | 2023-08-22 15:00 | XR_ITS ---
Patient: ANATOLIY MONTANO Facility:?[facility] Patient ID:?[id number] Site Patient ID:?[id number]. Site :?[id number] Study:?DEXA-Bone Density -08/22/2023 3:31:00 PM Ordering Physician:YOHANA Final Report: DXA BONE MINERAL DENSITY STUDY Reason for exam: Breast cancer. Current height (in): 64. Weight (lb): 140. Menopause age: 40. Ethnicity: White. 1. Have you had a previous hip or vertebral fracture? No. 2. Have you had any fractures during your adult life which did not result from significant trauma (e.g., auto accident)? No. 3. Did either of your parents have a hip fracture? Yes. 4. Do you smoke? No. 5. Have you ever taken Glucocorticoids? No. 6. Do you have rheumatoid arthritis? No. 7. Do you have secondary osteoporosis? No. 8. Do you drink 3 or more alcoholic drinks per day? No. 9. Are you being treated for osteoporosis? No. 10. Have you ever taken any of the following medications: Actonel, Evista, Fosamax, Miacalcin, Reclast, Boniva, Forteo, HRT (i.e. estrogen/hormone therapy), Protelos, Prolia, Vitamin D, Calcium, other ? please specify. ANSWER: Yes, vitamin D. 11. Do you have any of the following medical conditions: Anorexia or bulimia, asthma or emphysema, end stage renal disease, hyperparathyroidism, any seizure disorders, cancer, inflammatory bowel diseases, hysterectomy, other ? please specify. ANSWER: Yes, breast cancer and hysterectomy. 12. What was your maximum height (inches)? 65.5. 13. Do you perform weight bearing exercise regularly? No. 14. Do you regularly consume dairy products? No. 15. Do you drink caffeinated beverages? Yes. 16. At what age did your period start? 16. 17. Are you premenopausal? No. 18. How many full term pregnancies have you had? 2. 19. Have you ever missed your period for more than 6 months in a row (not including or menopause)? No. TECHNIQUE: Bone mineral density study was performed using the [employer]. FINDINGS: The results of the study expressed as bone mineral density (BMD) are as follows: Lumbar spine L1 to L4: BMD: 0.883 g/cm2. T-score: -1.5. Z-score: 1.4. Neck Left: BMD: 0.499 g/cm2. T-score: -3.2. Z-score: -0.6. Right: BMD: 0.564 g/cm2. T-score: -2.6. Z-score: -0.0. Total Left: BMD: 0.637 g/cm2. T-score: -2.5. Z-score: -0.2. Right: BMD: 0.692 g/cm2. T-score: -2.1. Z-score: 0.3. IMPRESSION: Osteoporosis. *Comparison exams done prior to 10/2019 were performed on different unit, [employer]. Hank Whalen M.D. Diagnostic Radiologist [email or web address] DSM/sp D& Transcribed: 5:46 p.m. SP/Dictated by: Hank Whalen MD @ 08/23/2023 1:43:00 PM Signed by:Daya Whalen MD @08/23/2023 6:16:21 PM (Electronic Signature)
== END 2023-08-22 14:55 | disposition home or self-care (01) ==
LOC: RAD 14:55
PROVIDERS: PCP Family Medicine; Visit Provider Internal Medicine Hematology & Oncology
DX: N95.9 Unspecified menopausal and perimenopausal disorder (principal); M81.0 Age-related osteoporosis without current pathological fracture
CPT/HCPCS: 77080

== ENCOUNTER 2024-01-16 09:10 | Outpatient (RCR) | payer MEDICARE, OTHER, SELFPAY ==
--- NOTE | 2023-11-14 14:04 | ONC.NURNOTE ---
Call to patient in follow up to new start Tamoxifen. Patient states she is taking it daily and has not noted any new side effects. Patient encouraged to call with questions or concerns.
== END 2024-02-01 23:59 | disposition home or self-care (01) ==
LOC: CCIC 09:10
PROVIDERS: PCP Family Medicine; Visit Provider Physician Assistant
DX: C50.912 Malignant neoplasm of unspecified site of left female breast (principal); Z17.0 Estrogen receptor positive status [ER+]; Z79.810 Long term (current) use of selective estrogen receptor modulators (SERMs); M81.0 Age-related osteoporosis without current pathological fracture; F41.9 Anxiety disorder, unspecified; Z90.13 Acquired absence of bilateral breasts and nipples
CPT/HCPCS: 99202; 99205; 99214; 99215; G0463

== ENCOUNTER 2024-04-22 10:15 | Outpatient (RCR) | payer MEDICARE, OTHER, SELFPAY ==
--- NOTE | 2023-07-04 18:48 | OT.OPLE2 ---
OT Outpatient Lymphedema Eval* OT Outpatient Lymphedema Eval* Start: 07/04/23 13:58 Freq: Status: Active Protocol: Document 07/04/23 14:00 AMB (Rec: 07/04/23 18:46 AMB [id number]) E-signed By Naida Rincon, OTR/L, CLT, LEARNING AND DEVELOPMENT DIRECTOR OT Outpatient Evaluation Details Type Type Eval Complexity Low Insurance Information Insurance Information Insurance Information Medicare B OT OP Lymphedema Evaluation Current Condition/Medical Diagnosis Referring Provider Dr Naranjo Treatment Diagnosis At Risk for lymphedema due to left breast cancer with mastectomy / SLN biop Date Of Onset 07/18/23 Medical History Medical History Cancer Treatment/Surgery,HTN Medical History Comments Active Problems (Updated 07/03 @ 15:20 by Carmita Naranjo MD) Breast cancer, 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 Medications Medications aspirin 81 mg PO QDAY hydrochlorothiazide 12.5 mg PO QAM metoprolol succinate ER 12.5 mg PO QDAY sertraline 150 mg PO QDAY simvastatin 10 mg PO QDAY Family History Family History of Lymphedema No Current Work Status Current Work Status Retired Subjective Subjective The patient is an 87-year-old female who presents to clinic today with a new diagnosis of left-sided breast cancer. She states that she fell recently and noted a lump on her breast. It did not go away so she went into her primary care doctor. She was found to have 2 masses in her left breast. These were biopsied and found to be positive for invasive lobular carcinoma. Living Situation Current Living Situation Private Home/Apartment (Alone) Current Living Situation Comments Pt lives alone in a multi- level home, not handicap accessible. Pt's of lung cancer several years ago. Pt's only son of COVID. Pt is supported by her son's SO, Aide who is very supportive. Aide attended today's evaluation and states she will be there to support pt following her surgery as much as needed. Stated she would stay with patient if needed as well. Problem List Problem List Limited Knowledge of Lymphedema Treatment/Condition /Precautions,Limited Knowledge of Skin Care & Infection Precautions,Significant Risk For Infection For Lymphedema Related Complications,Does Not Have a HEP Exercise History Does Patient Exercise Regularly No Pain Pain No ROM/Strength ROM/Strength Comments Pt demonstrates full AROM and functional strength in BUE Compression History Does Patient Currently Wear Compression No During Daytime Does Patient Currently Wear Compression No At Night Current Swelling (Location/Pitting/Texture) Pitting Scale: 0 = No pitting 1+ Tissue returns to normal almost immediately 2+ Tissue returns after 15-30 seconds 3+ Tissue returns after 1-1/2 minutes 4+ Tissue returns after 2-3 minutes N/A Tissue no longer pits due to induration Tissue texture: Soft or indurated Clinical Presentation Area Pt will be at risk for lymphedema in the left upper quadrant following breast cancer surgery / treatment. Triggering Event & Start Date of Left sided mastectomy with LN Swelling/Lymphedema removal scheduled for 06/17/23 Circumferential Measurements Upper Extremity Left Upper Extremity MCP (in cm) 18.8 Palm (in cm) 18.7 Smallest Wrist Measurement (in cm) 15.1 10 cm Above Smallest Wrist Measurement 19.0 20 cm Above Smallest Wrist Measurement 24.0 30 cm Above Smallest Wrist Measurement 24.4 40 cm Above Smallest Wrist Measurement 28.3 Total Girth in cm 148.3 UE Volume C 232.34 UE Volume D 369.50 UE Volume E 466.04 UE Volume F 553.53 Upper Extremity Volume Total in cm 1,621.41 Right Upper Extremity MCP (in cm) 18.7 Palm (in cm) 18.7 Smallest Wrist Measurement (in cm) 15.1 10 cm Above Smallest Wrist Measurement 19.5 20 cm Above Smallest Wrist Measurement 25.1 30 cm Above Smallest Wrist Measurement 25.5 40 cm Above Smallest Wrist Measurement 28.5 Total Girth in cm 151.1 UE Volume C 239.45 UE Volume D 397.81 UE Volume E 509.37 UE Volume F 580.71 Upper Extremity Volume Total in cm 1,727.34 Assessment Assessment Pt presents pre-operatively for initiation of lymphedema surveillance program. Following her 07/18/23 left sided mastectomy with SLN biopsy, pt is at risk for lymphedema in her LUE / upper quadrant due to LN removal. Pt may need radiation which would add to her risk. Pt will benefit from skilled OT intervention for pt education, monitoring / surveillance in order to provide early detection / intervention to assure best positive outcomes with fewer lymphedema related complications if the need arises. Pt demonstrates good interest and motivation to be an active participant in her care. Pt asked multiple pertinent questions and received satisfactory answers. Pt was given contact info and encouraged to reach out if more questions arise. Patient Goals Patient Goals 1. Pt will demonstrate a general understanding of the lymphatic system, s/s of lymphedema, treatment of lymphedema, implications of untreated lymphedema, s/s of infection and the correlation of infection related to lymphedema. 3 months 2. Pt will be compliant with quarterly assessments for lymphedema surveillance in order to obtain early intervention with best outcomes if needed. 12 months Treatment Plan Treatment Plan Evaluation,Edema Control,Joint Mobilization,Manual Therapy, Wound Care/Scar Management, Therapeutic Exercise, Therapeutic Activities,Self- Care/Home Management,Caregiver Training,Education Other Treatment Plan Will see pt 4 weeks p/o and then quarterly x 12 months or prn if needs arise. Certification Certification Statement I Certify That: Therapy Services Provided, Therapy Plan Established, Therapy Plan Reviewed Certification Information Clinic ID # [id number] Initial Certification Date 07/04/23 Recertification Due Date 10/02/23 Provider Signature Shows Agreement With POC & Medical Necessity Physician Comment/Change Comment or Changes Physician NPI Number #
--- NOTE | 2023-07-05 11:07 | PT.OPE ---
PT [place] Outpatient Eval PT [facility] Outpatient Eval Start: 07/05/23 07:53 Freq: Status: Active Protocol: Document 07/05/23 07:54 ENM (Rec: 07/05/23 11:00 ENM [id number]) E-signed By Belinda Sanders, DPT Physical Therapy Outpatient Evaluation Insurance Information Recert Due Date 09/27/23 Insurance Name Medicare B Medical Diagnosis breast cancer left mastectomy with SLND DOS Treating Diagnosis left breast pain, impaired posture Referring MD Naranjo Subjective Subjective Patient presents to PT for pre -operative evaluation prior to left mastectomy with SLND for multi focal invasive lobular carcinoma, 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 Was diagnosed back in May. Met with on Saturday and will be moving forward with surgery in two weeks. She is not sure yet if she wants to have a unliteral or bilateral mastectomy. There is no definite plan yet for treatment after surgery. Has an oncology appointment on 04 of August. Patient lives in [place] by herself, comes to the appointment with daughter in law Noble. Patient reports no issues at her neck or shoulders prior surgery. Plans to have someone stay with her after surgery. PMHx: HTN, breast cancer Pain Comments tenderness at left breast after biopsy Date of Surgery (If applicable) 07/18/23 Current Work Status Retired Preferred Name Letitia Objective Other/Pertinent Objective AROM standing: Shoulder flexion L 155 R 150 abduction L 165 R 160 Scaption L 151 R 154 IR L T3 R T8 ER T3 Posture: protracted shoulders, decreased thoracic kyphosis Joint mobility: posterior glide of GH decreased mobility on R compared to L inferior glide of GH hypomobile B Scapular control: fair set Functional Test Performed & Score PRE OP SPADI: Pain 0 Disability 0 Assessment Assessment/Impression Patient presents to PT pre- operatively for planned Breast Cancer surgery to include mastectomy and planned SLNB with no reconstruction on 07/05. Assessment today included baseline UE ROM, postural, and joint mobility measurements which are to be compared to measurements retaken 4 weeks post-surgery. At that time, any reduced movement, decline in function, or postural issues will be addressed with skilled care and new goals will be established. Education was given today regarding post-operative signs of infection, axillary cording, seroma formation, and home program to be performed within the first 3-4 weeks post-operatively focusing on UE mobility within surgical restrictions. Primary Functional Limitations none at baseline Plan of Care Rehabilitation Potential Good Physical Therapy Goals Goals pre op 1. Pt demonstrates awareness of post-operative movement restrictions and HEP to facilitate lymphatic regeneration and reduce the risk of seroma formation, axillary web syndrome and lymphedema while ensuring shoulder joint mobility. Coordination/Communication With Referral Source Treatment Plan/Direct Interventions Ice/Cold/Vasopneumatic,Joint Mobilization,Manual Therapy, Neuromuscular Re-ed,Self-Care/ Home Management,Therapeutic Activities,Therapeutic Exercises Frequency/Duration 2x a week for 3 weeks, as needed for 3-4 visits Patient Will Be Discharged From Therapy Completion of LTG(s), Independent w/HEP Evaluation Billing Untimed Code Treatment Minutes 26 Complexity Low Certification Information Initial Certification Date 07/05/23 Ending Certification Date 09/27/23 Provider Signature Shows Agreement With POC & Medical Necessity Physician Signature & Date Requested Please Sign/Date Here Physician Comment/Change : Physician NPI Number #
--- NOTE | 2023-08-16 10:24 | PT.OPDN ---
[facility] Out[facility] Daily Note PT [facility] Outpatient Daily Note Start: 07/05/23 07:53 Freq: Status: Active Protocol: Document 08/16/23 07:45 ENM (Rec: 08/16/23 09:17 ENM [id number]) E-signed By Belinda Sanders DPT PT OP Daily Progress Note Visit Information Note Type Re-Evaluation Visit Number 2 Insurance Information Recert Due Date 11/14/23 Insurance Name Medicare B Medical Diagnosis breast cancer left mastectomy with SLND DOS Referring MD Naranjo Subjective Subjective Patient presents to PT for post-operative evaluation after bilateral mastectomy with SLND for multi focal invasive lobular carcinoma, ER + FL- HER2 - (DOS 07/18/23). Initially was going to have left mastectomy and elected to have this performed bilaterally. Two lymph nodes were taken out which were negative. Plan is to have radiation which will start as soon as possible and will meet with the radiologist next Saturday, possibly 15-30 treatments. As well as hormone hunter for estrogen. She has not tried to move up overhead yet since surgery. The bruising has subsided some. She is most worried about being able to hold her breath for radiation. Is also concerned about her bone quality and density. PMHx: HTN, breast cancer Pain Comments no pain Preferred Name Letitia Precautions Treatment Precautions/Contraindications Daughter in law is named Aide Objective Other/Pertinent Objective AROM standing: Shoulder flexion L 112 before the stretch R 146 abduction L 110 before the stretch R 156 IR L T4 R T8 ER T3 B Posture: protracted shoulders, decreased thoracic kyphosis Palpation: mild tissue restriction at R incision mod tissue restriction at L incision, tightest on lateral side Observation/swelling: mild swelling in left axilla, no bruising present Cording - Functional Test Performed & Score PRE OP SPADI: Pain 0 Disability 0 Patient Instructed in Risks/Benefits Yes Therapeutic Exercise Therapeutic Exercise Minutes (minutes) 9 Therapeutic Exercise: To Restore -supine flexion hands clasped Functional Status -supine chicken wings -standing flexion AROM -standing scap retraction Issued and reviewed HEP, patients daughter in law to help patient with this at home Therapeutic Activity Therapeutic Activity Minutes (minutes) 7 Therapeutic Activities Comments -answered patients questions about radiation positioning, film and holding her breath. Patient able to hold abd/ER positioning with a pillow for support for 3 minutes today before needing a break. She was able to display ability to hold breath for 20s performed two times Manual Therapy Techniques Manual Therapy Minutes (minutes) 18 Manual Therapy Techniques - soft tissue mobilization and massage to B pec majors, intercostals -scar mobilization (most tightness at L lateral incision) -supine passive shoulder flexion stretch -posterior glide of B GHJ grade III Treatment Minutes Untimed Code Treatment Minutes 23 Timed Code Treatment Minutes 34 Total Treatment Time 57 Billing Units Manual Therapy Units 1 Therapeutic Exercise Units 1 Re-Evaluation Units 1 Assessment/Impression Assessment/Impression Patient returns to PT for her 4 week post-operative evaluation to compare baseline pre-operative measurements to her current condition, in addition to assessing for post -operative impairments that will benefit from continuation of skilled care. She currently presents with moderate tissue restrictions at her incisions and decreased shoulder ROM that will benefit from skilled care, including therapeutic exercise , manual therapy, neuromuscular education, self- care training and HEP training , in order to return her to her prior level of function and comfort. Plan will be to start radiation once she is able to comfortably hold the position, was able to tolerate 3 mins today before needing a break due to discomfort. Plan of Care Physical Therapy Goals In 4-6 visits prior to radiation: 1. Restore shoulder AROM, as measured at pre-operative evaluation, after initial recovery period to improve 1 and 2-handed functional activity ability. (This will reduce during radiation therapy inflammatory phase, if needed.) 2. Restore functional scoring using SPADI assessment tool to pre-operative amounts to ensure full return to baseline function. 3. Restore full upright posture per patient perception or compared to pre-operative findings. Daily Plan of Care Continue per POC Daily Plan of Care Comments Plan: assess SPADI progress ROM MT Recertification Information Initial Certification Date 07/05/23 Recertification Start Date 08/16/23 Recertification Due Date 11/14/23 Provider Signature Shows Agreement With POC & Medical Necessity Physician Comment/Change Comment or Changes Physician NPI Number #
--- NOTE | 2023-11-12 15:06 | OT.OPLDN2 ---
OT Outpatient Lymphedema Daily Note OT Outpatient Lymphedema Daily Note* Start: 07/04/23 13:58 Freq: Status: Active Protocol: Document 11/12/23 10:18 AMB (Rec: 11/12/23 13:28 AMB [id number]) E-signed By Naida Rincon, OTR/L, CLT, HYDROGENATION OPERATOR Type of Note Type of Note Type of Note Daily Note,Recert/Progress Note Visit Number 3 Comments MC due 01/03/24 Insurance Information Insurance Information Insurance Information Medicare B OT OP Lymphedema Daily/Progress Note Current Condition/Medical Diagnosis Referring Provider Dr Naranjo Treatment Diagnosis At Risk for Lymphedema Date Of Onset 07/18/23 Medical History Medical History Cancer Treatment/Surgery,HTN Medical History Comments Active Problems (Updated 07/03 @ 15:20 by Carmita Naranjo MD) Breast cancer, 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 Surgery went well, pain was very well managed, only needed Tylenol for pain for a couple of days. Medications Medications aspirin 81 mg PO QDAY hydrochlorothiazide 12.5 mg PO QAM metoprolol succinate ER 12.5 mg PO QDAY sertraline 150 mg PO QDAY simvastatin 10 mg PO QDAY Family History Family History of Lymphedema No Current Work Status Current Work Status Retired Subjective Subjective Pt feels she is doing well, she finished her 15 rounds of XRT on 09/27/23. Pt states she is surprised how fatigued she was with the radiation. Pt continues to use lotion in the left upper quadrant to care for her radiated skin. Pt denies any concerns for lymphedema / swelling anywhere . Living Situation Current Living Situation Private Home/Apartment (Alone) Current Living Situation Comments Pt lives alone in a multi- level home, not handicap accessible. Pt's of lung cancer several years ago. Pt's only son of COVID. Pt is supported by her son's SO, Aide who is very supportive. Aide attended today's evaluation and states she will be there to support pt following her surgery as much as needed. Stated she would stay with patient if needed as well. Problem List Problem List Limited Knowledge of Lymphedema Treatment/Condition /Precautions,Limited Knowledge of Skin Care & Infection Precautions,Significant Risk For Infection For Lymphedema Related Complications,Does Not Have a HEP Exercise History Does Patient Exercise Regularly No Pain Pain No ROM/Strength ROM/Strength Comments Pt continues to demonstrate full AROM and functional strength in BUE, although, she does have some tightness noted at EROM in her chest wall with shoulder elevation/ abd/ER (chicken wing). Compression History Does Patient Currently Wear Compression No During Daytime Does Patient Currently Wear Compression No At Night Current Swelling (Location/Pitting/Texture) Pitting Scale: 0 = No pitting 1+ Tissue returns to normal almost immediately 2+ Tissue returns after 15-30 seconds 3+ Tissue returns after 1-1/2 minutes 4+ Tissue returns after 2-3 minutes N/A Tissue no longer pits due to induration Tissue texture: Soft or indurated Clinical Presentation Area Pt is at risk for lymphedema in the left upper quadrant following breast cancer surgery / treatment. Triggering Event & Start Date of Bilateral mastectomy with LN Swelling/Lymphedema removal s/p 06/17/23, 15 rounds of XRT completed on 09/27/23 Skin Changes Comments Pt has mastectomy scars on bilateral chest wall. Scars are healed very well, no opened areas no s/s of infection. 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 Swelling Comments Surgical incisions are well healed, no s/s of axillary cording and no s/s of lymphedema. Circumferential Measurements Upper Extremity Left Upper Extremity MCP (in cm) 18.6 Palm (in cm) 18.7 Smallest Wrist Measurement (in cm) 15.1 10 cm Above Smallest Wrist Measurement 19.0 20 cm Above Smallest Wrist Measurement 24.4 30 cm Above Smallest Wrist Measurement 24.9 40 cm Above Smallest Wrist Measurement 27.8 Total Girth in cm 148.5 UE Volume C 232.34 UE Volume D 376.65 UE Volume E 483.54 UE Volume F 553.08 Upper Extremity Volume Total in cm 1,645.61 Right Upper Extremity MCP (in cm) 18.7 Palm (in cm) 18.7 Smallest Wrist Measurement (in cm) 15.1 10 cm Above Smallest Wrist Measurement 19.5 20 cm Above Smallest Wrist Measurement 25.0 30 cm Above Smallest Wrist Measurement 25.5 40 cm Above Smallest Wrist Measurement 27.8 Total Girth in cm 150.3 UE Volume C 239.45 UE Volume D 395.96 UE Volume E 507.37 UE Volume F 565.52 Upper Extremity Volume Total in cm 1,708.30 Treatment Self-Care/Home Management Minutes ( 30 minutes) Self-Care/Home Management Comments Pt presents with 2 lesions on her RUE, states these are a scratch and a bite from her cat, states her cat can be temperamental at times. Discussed the risk for infection, especially with animal bites/scratches, especially if it were on her LUE. Recommended pt really watch and monitor for infections is she gets any lesions like this, especially in her left upper quadrant due to the risk of lymphedema. Recommended she clean area with peroxide and apply a triple antibiotic. If she feels she has an infection, she should be seen for antibiotic. Current lesions do not appear infected. Provided review of patient education regarding the lymphatic system, s/s of lymphedema, treatment options for lymphedema, implications of untreated lymphedema, infection and it's correlation to lymphedema as well as implications of untreated infection. Discussed risk reduction practices including skin care and monitoring strategies. Discussed the importance of regular exercise and healthy habits. Total Occupational Therapy Minutes 30 Assessment Assessment Pt doing quite well, does have lesions on the non-involved UE from her cat, benefitted from additional education regarding infection prevention and monitoring. Pt verbalizes a good understanding of and agreement to self-monitoring for lymphedema and infection. Patient Goals Patient Goals 1. Pt will demonstrate a general understanding of the lymphatic system, s/s of lymphedema, treatment of lymphedema, implications of untreated lymphedema, s/s of infection and the correlation of infection related to lymphedema. 3 months 2. Pt will be compliant with quarterly assessments for lymphedema surveillance in order to obtain early intervention with best outcomes if needed. 12 months Treatment Plan Treatment Plan Evaluation,Edema Control,Joint Mobilization,Manual Therapy, Wound Care/Scar Management, Therapeutic Exercise, Therapeutic Activities,Self- Care/Home Management,Caregiver Training,Education Other Treatment Plan Will see pt 4 weeks p/o and then quarterly x 12 months or prn if needs arise. Occupational Therapy Billing Units Treatment Minutes Timed Treatment Minutes 30 Total Treatment Minutes 30 Billing Units Manual Therapy 2 Certification Statement Certification Statement I Certify That: Therapy Services Provided, Therapy Plan Established, Therapy Plan Reviewed Recertification Information Recertification Information Initial Certification Date 07/04/23 Recertification Start Date 10/03/23 Recertification Due Date 01/03/24 Reasons to Continue Skilled Therapy Pt is participating in a lymphedema surveillance program and will benefit from continued surveillance to provide early intervention and treatment in the event that she develops lymphedema in order to achieve best outcomes as well as continued pt education on risk reduction practices. Rehabilitation Potential Good Click To Default 'Per treatment plan' Per treatment plan Continued Plan of Care and Interventions Per treatment plan Provider Signature Required Yes Provider Signature Shows Agreement With POC & Medical Necessity Physician NPI Number Write NPI# Here Physician Comment/Change Comment or Changes Physician Signature & Date Requested Please Sign/Date Here
--- NOTE | 2024-01-07 11:48 | OT.OPLDN2 ---
OT Outpatient Lymphedema Daily Note OT Outpatient Lymphedema Daily Note* Start: 07/04/23 13:58 Freq: Status: Active Protocol: Document 01/07/24 09:28 AMB (Rec: 01/07/24 11:47 AMB [id number]) E-signed By Naida Rincon, OTR/L, CLT, [employer] Type of Note Type of Note Type of Note Daily Note,Recert/Progress Note Visit Number 4 Comments MC due 04/03/24 Insurance Information Insurance Information Insurance Information Medicare B OT OP Lymphedema Daily/Progress Note Current Condition/Medical Diagnosis Referring Provider Dr Naranjo Treatment Diagnosis At Risk for Lymphedema Date Of Onset 07/18/23 Medical History Medical History Cancer Treatment/Surgery,HTN Medical History Comments Active Problems (Updated 07/03 @ 15:20 by Carmita Naranjo MD) Breast cancer, 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 Surgery went well, pain was very well managed, only needed Tylenol for pain for a couple of days. Medications Medications aspirin 81 mg PO QDAY hydrochlorothiazide 12.5 mg PO QAM metoprolol succinate ER 12.5 mg PO QDAY sertraline 150 mg PO QDAY simvastatin 10 mg PO QDAY Family History Family History of Lymphedema No Current Work Status Current Work Status Retired Subjective Subjective Pt offers no complaints, denies noticing any swelling or discomfort. Pt is, however, struggling with finding a good bra that will stay in place and accommodate her prosthesis when she wears them , prefers a front closure. Pt states she has been very cautious with her cat, avoiding scratches and has not had any other issues. Continues to monitor and care for her skin, lotions on a regular basis. Living Situation Current Living Situation Private Home/Apartment (Alone) Current Living Situation Comments Pt lives alone in a multi- level home, not handicap accessible. Pt's of lung cancer several years ago. Pt's only son of COVID. Pt is supported by her son's SO, Aide who is very supportive. Aide attended today's evaluation and states she will be there to support pt following her surgery as much as needed. Stated she would stay with patient if needed as well. Problem List Problem List Limited Knowledge of Lymphedema Treatment/Condition /Precautions,Limited Knowledge of Skin Care & Infection Precautions,Significant Risk For Infection For Lymphedema Related Complications,Does Not Have a HEP Exercise History Does Patient Exercise Regularly No Pain Pain No ROM/Strength ROM/Strength Comments Pt continues to demonstrate full AROM and functional strength in BUE, states she continues to do her home exercises. Compression History Does Patient Currently Wear Compression No During Daytime Does Patient Currently Wear Compression No At Night Current Swelling (Location/Pitting/Texture) Pitting Scale: 0 = No pitting 1+ Tissue returns to normal almost immediately 2+ Tissue returns after 15-30 seconds 3+ Tissue returns after 1-1/2 minutes 4+ Tissue returns after 2-3 minutes N/A Tissue no longer pits due to induration Tissue texture: Soft or indurated Clinical Presentation Area Pt is at risk for lymphedema in the left upper quadrant following breast cancer surgery / treatment. Triggering Event & Start Date of Bilateral mastectomy with LN Swelling/Lymphedema removal s/p 06/17/23, 15 rounds of XRT completed on 09/27/23 Skin Changes Comments Pt has mastectomy scars on bilateral chest wall. Scars are healed very well, no opened areas no s/s of infection. Radiation dermatitis has cleared. Swelling Comments Surgical incisions are well healed, no s/s of axillary cording and no s/s of lymphedema. Circumferential Measurements Upper Extremity Left Upper Extremity MCP (in cm) 18.6 Palm (in cm) 18.7 Smallest Wrist Measurement (in cm) 15.1 10 cm Above Smallest Wrist Measurement 19.1 20 cm Above Smallest Wrist Measurement 24.5 30 cm Above Smallest Wrist Measurement 25.1 40 cm Above Smallest Wrist Measurement 27.9 Total Girth in cm 149.0 UE Volume C 233.75 UE Volume D 380.11 UE Volume E 489.45 UE Volume F 559.35 Upper Extremity Volume Total in cm 1,662.66 Right Upper Extremity MCP (in cm) 18.7 Palm (in cm) 18.7 Smallest Wrist Measurement (in cm) 15.1 10 cm Above Smallest Wrist Measurement 19.5 20 cm Above Smallest Wrist Measurement 25.0 30 cm Above Smallest Wrist Measurement 25.5 40 cm Above Smallest Wrist Measurement 27.8 Total Girth in cm 150.3 UE Volume C 239.45 UE Volume D 395.96 UE Volume E 507.37 UE Volume F 565.52 Upper Extremity Volume Total in cm 1,708.30 Treatment Self-Care/Home Management Minutes ( 36 minutes) Self-Care/Home Management Comments Provided review of patient education regarding the lymphatic system, s/s of lymphedema, treatment options for lymphedema, implications of untreated lymphedema, infection and it's correlation to lymphedema as well as implications of untreated infection. Reviewed precautions that were discussed last visit, especially related to cat scratches / bites. Discussed risk reduction practices including skin care and monitoring strategies. Discussed the importance of regular exercise and healthy habits. Discussed important features to look for when selecting a bra, recommended against underwires and watching to be sure the bra does not come too high into axilla. Provided printed information on [employer] options. Total Occupational Therapy Minutes 36 Assessment Assessment Pt doing quite well, cat scratches have healed, skin is in great condition, no concerns for lymphedema are observed in clinic today. Pt is very interested in information regarding front closure bras that will accommodate her prosthesis. Pt Patient Goals Patient Goals 1. Pt will demonstrate a general understanding of the lymphatic system, s/s of lymphedema, treatment of lymphedema, implications of untreated lymphedema, s/s of infection and the correlation of infection related to lymphedema. 3 months 2. Pt will be compliant with quarterly assessments for lymphedema surveillance in order to obtain early intervention with best outcomes if needed. 12 months Treatment Plan Treatment Plan Evaluation,Edema Control,Joint Mobilization,Manual Therapy, Wound Care/Scar Management, Therapeutic Exercise, Therapeutic Activities,Self- Care/Home Management,Caregiver Training,Education Other Treatment Plan Pt will continue with lymphedema surveillance program with re-assessment quarterly for 12 months following date of surgery. If the need arises, pt will transition to treatment as indicated at the time of need. Occupational Therapy Billing Units Treatment Minutes Timed Treatment Minutes 36 Total Treatment Minutes 36 Certification Statement Certification Statement I Certify That: Therapy Services Provided, Therapy Plan Established, Therapy Plan Reviewed Recertification Information Recertification Information Initial Certification Date 07/04/23 Recertification Start Date 01/03/24 Recertification Due Date 04/03/24 Reasons to Continue Skilled Therapy Due to her hx of LN removal and radiation therapy, she is at risk for developing lymphedema in her left upper quadrant. Pt will continue with lymphedema surveillance program with re-assessment quarterly for 12 months following date of surgery. If the need arises, pt will transition to treatment as indicated at the time of need. Pt demonstrates good interest and motivation to be an active participant in her care . Pt continues to ask pertinent questions and is interested in [facility], self- monitoring and management. Rehabilitation Potential Good Click To Default 'Per treatment plan' Per treatment plan Continued Plan of Care and Interventions Per treatment plan Provider Signature Required Yes Provider Signature Shows Agreement With POC & Medical Necessity Physician NPI Number Write NPI# Here Physician Comment/Change Comment or Changes Physician Signature & Date Requested Please Sign/Date Here
== END 2024-08-20 23:59 | disposition home or self-care (01) ==
PROVIDERS: PCP Family Medicine; Visit Provider Surgery
DX: I89.0 Lymphedema, not elsewhere classified (principal); M79.602 Pain in left arm; Z74.09 Other reduced mobility; Z51.89 Encounter for other specified aftercare
CPT/HCPCS: 97110; 97140; 97161; 97164; 97165; 97535

== ENCOUNTER 2024-09-11 10:30 | Outpatient (RCR) | payer MEDICARE, OTHER, SELFPAY | END 2024-11-14 23:59 | disposition home or self-care (01) | LOC: CCIC 10:30 | PROVIDERS: PCP Family Medicine; Visit Provider Internal Medicine Hematology & Oncology | DX: C50.912 Malignant neoplasm of unspecified site of left female breast (principal); Z17.0 Estrogen receptor positive status [ER+]; M81.0 Age-related osteoporosis without current pathological fracture; Z79.810 Long term (current) use of selective estrogen receptor modulators (SERMs); Z90.13 Acquired absence of bilateral breasts and nipples; Z90.710 Acquired absence of both cervix and uterus | CPT/HCPCS: 99213; 99214; G0463 ==